=== PATIENT | male | born 1955 | race Two or more races ===

== ENCOUNTER 2025-05-15 09:37 | Outpatient (AMB) | payer MEDICARE, MEDICAID, SELFPAY ==
--- OUTSIDE RECORDS SUMMARY | 2025-05-10 18:00 | XMS_ITS | Encounter Summary ---
Author Organization [facility] Address [address] [place] [address] Care Team Providers Care Special Education Case Manager Name Role Phone Santino Curiel MD Primary Care Provider [phone] Reason for Visit * Reason Comments UTI 1 months Encounter Details Date Type Department Care Team (Late st Contact Info) Description 05/10/2025 6:00 PM EDT Office Visit Walk-In Clinic - [facility] [address], [place] [phone] Ezekiel Horner PA [address], [place] Acute cystitis without hematuria (Primary Dx); History of sepsis Social History Tobacco Use Types Packs/Day Years Used Date Smoking Tobacco: Never Smokeless Tobacco: Never Alcohol Use Standard Drinks/Week Comments No 0 (1 standard drink = 0.6 oz pur e alcohol) Housing Instability Answer Date Recorde d Are you worried that in the next 2 months you may not have stable housing? No 04/16/2025 Food Access & Nutrition Answer Date Rec orded Do you have access to a vari ety of food including fruits and vegetables? Yes 04/16/2025 Access to Healthcare Answer Date Record ed Within the last 3 months, jocelin jason many times did you visit the emergency department for your medical care? 1 04/16/2025 Financial Risk Answer Date Recorded How hard is it for you to pa y for the very basics like food, housing, medical care, and air conditioning / heating? Not very hard 04/16/2025 Transportation Answer Date Recorded Has the lack of transportati on kept you from meetings, work, or from getting things needed for daily living? No Has the lack of transportati on kept you from medical appointments or from getting medications? No 04/16/2025 Social Isolation Answer Date Recorded How often do you feel lonely or isolated from th ose around you? Never 04/16/2025 Food Risk Answer Date Recorded Within the past 12 months we worried whether our food would run out before we got money to buy more. Never true 04/16/2025 Within the past 12 months th e food we bought just didn't last and we didn't have money to get more. Never true 04/16/2025 Dependent Care Answer Date Recorded Do you need help finding or paying for care for your loved ones. For example, childrens club attendant or elderly care for an older adult? No 04/16/2025 Education Answer Date Recorded Do you think completing more education or training, like finishing a GED, going to college, or learning a trade, would be helpful for you? N/A 04/16/2025 Employment and Income Answer Date Recor ded During the last four weeks, have you been actively looking for work? No 04/16/2025 Living Situation Answer Date Recorded What is your living situation? 0 04/16/2025 Sex and Gender Information Value Date Recorded Sex Assigned at Not on file Legal Sex Male 1:45 AM EST Gender Identity Not on file Sexual Orientation Not on file documented as of this encounter Last Filed Vital Signs Vital Sign Reading Time Taken Comments Blood Pressure 147/67 05/10/2025 6:01 PM EDT Pulse 81 05/10/2025 6:01 PM EDT Temperature 36.9 C (98.4 F) 05/10/2025 6:01 PM EDT Respiratory Rate - - Oxygen Saturation 98% 05/10/2025 6:01 PM EDT Inhaled Oxygen Concentration - - Weight - - Height - - Body Mass Index - - documented in this encounter Ordered Prescriptions Prescription Sig Dispense Quantity Refills Last Filled Start Date End Date ciprofloxacin (CIPRO) 500 mg tablet Take 1 tablet (500 mg total) by mouth 2 (two) times a day for 10 days. 20 each 05/10/2025 05/20/2025 documented in this encounter Progress Notes * ERNIE Herrera - 05/10/2025 6:00 PM EDT CHIEF COMPLAINT: Chief Complaint Patient presents with UTI 1 months HPI: López Harvey is a 69 y.o. old male presenting with recurrent UTI. Patient was presenting to urgent care with fever of unknown origin, identified on urine dip to be a UTI. Macrobid therapy was unsuccessful and patient with septic, subsequently was treated at the ER with IV antibiotics, and discharged home on levofloxacin daily for 7 days. States that a a follow-up urine culture at the end of levofloxacin had no growth suggesting effective eradication of bacteriuria. For the last week however, his dysuria has been increasing along with cloudiness, odors, and right flank discomfort. Patient's and daughter both express concern that his UTI is coming back. He has had no fevers and no blood in the urine. ROS: Remainder of the 12 point review of symptoms unremarkable except for those idenitified in the HPI. 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 Family Status Relation Name Status Sister Alive Sister Alive Sister Alive Sister Alive Sister Alive Mother Father No partnership data on file MEDICATIONS DISCONTINUED/REORDERED: There are no discontinued medications. ACTIVE MEDICATIONS: No outpatient medications have been marked as taking for the 05/10/25 encounter (Office Visit) with ERNIE Herrera. ALLERGIES: No Known Allergies PHYSICAL EXAM: Vitals: 05/10/25 1801 BP: (!) 147/67 BP Location: Right arm Patient Position: Sitting Pulse: 81 Temp: 36.9 ??C (98.4 ??F) SpO2: 98% CONSTITUTIONAL: alert, calm, cooperative, in no acute distress HEAD: normocephalic, atraumatic EYES: extraocular movement intact (EOMI), sclera non-icteric EARS: no hearing deficit noted NECK/THYROID: neck range of motion grossly intact SKIN: warm and dry. No diaphoresis. HEART: S1, S2 normal. No murmurs, rubs, gallops. Regular rate and rhythm. LUNGS: Lung sounds clear to auscultation bilaterally, no wheezes, rales, or rhonchi. Respirations regular rate and depth without acute distress MSK: no clubbing, cyanosis, or edema. Positive right sided CVA tenderness to percussion. NEUROLOGIC: alert and oriented, no tremor, cranial nerves II-XII grossly intact PSYCH: mood/affect full range, speech clear, good eye contact, cooperative with exam LABS/IMAGING: Urine dip: Appearance cloudy yellow, gravity 1.015, pH 5, 2+ leukocyte esterase, positive nitrites,trace protein, negative glucose, negative ketones, negative urobilinogen, 250 RBC. Urinalysis pending. Urine culture and sensitivity pending. Lab Results Component Value Date EGFR 93 04/04/2025 IMPRESSION: 1. Acute cystitis without hematuria 2. History of sepsis PLAN: The patient's PMH, problem list and medications were reviewed in reference to the above diagnosis/diagnoses. Based on ROS, HPI, and PE, suggestive of recurrence of UTI. He does have right flank discomfort butis currently afebrile, nondiaphoretic, hemodynamically stable, normal respirations, no current signs for septic response or pyelonephritis. In the presence of returning leukocytes, nitrates, and red blood cells on urine dip, empiric treatment will be initiated urgently today given recent sepsis secondary to UTI. Initiate ciprofloxacin 2 times daily for 10 days. Urine culture and sensitivity are pending to confirm no antibiotic resistance to this antibiotic. The risks and benefits of this medication were discussed with the patient. The patient understands the potential side effects and basic interactions of this medication. The patient is asked to call me or my colleagues if they begin to experience any difficulties with this medication. Advised to follow up with PCP in 10 days if symptoms do not improve. Advised to follow up with UC or PCP immediately for new or worsening symptoms. Educated on red flags symptoms. Advised to go to the ER or call 911 for these symptoms. Patient understands the plan. Patient verbalizes agreement with the plan. Orders Placed This Encounter Procedures Culture urine Order Specific Question: Specimen Source: Answer: Urine, Clean Catch [76] Urinalysis microscopic only Urinalysis microscopic only POC Urine Non-Auto W/O Micro Order Specific Question: Release to patient Answer: Immediate [1] Other orders ciprofloxacin (CIPRO) 500 mg tablet; Take 1 tablet (500 mg total) by mouth 2 (two) times a day for 10 days. ERNIE Herrera on 05/10/2025 at 6:31 PM EDT Today's documentation was made using voice recognition software. This note may contain grammatical errors secondary to this software. Cosigned by Elie Lora MD at 05/14/2025 10:10 AM EDT documented in this encounter Plan of Treatment Upcoming Encounters Date Type Department Care Team (Late st Contact Info) Description 05/24/2025 1:00 PM EDT Medication Management Adult Medicine [address] [address] Yakelin Pack, PharmD [address] [place] [address] 06/17/2025 1:15 PM EDT Office Visit Internal Medicine - [address] [phone] Santino Curiel MD [address] [place] [phone] documented as of this encounter Procedures Procedure Name Priority Date/Time Associated Diagnosis Comments POC URINE NON-AUTO W/O MICRO Routine 05/10/2025 6:35 PM EDT Acute cystitis without hematuria URINALYSIS MICROSCOPIC ONLY Routine 05/10/2025 6:31 PM EDT Acute cystitis without hematuria URINALYSIS MICROSCOPIC ONLY Routine 05/10/2025 6:31 PM EDT Acute cystitis without hematuria CULTURE URINE Routine 05/10/2025 6:31 PM EDT Acute cystitis without hematuria documented in this encounter Results * (ABNORMAL) POC Urine Non-Auto W/O Micro (05/10/2025 6:35 PM EDT) Pathologist [facility] GLUCOSE POC Negative Negative, Trace mg/dL Leukocytes UA POC 2+(A) Negative mg/dL Nitrite UA POC Positive Urobilinogen UA POC 0.2 E.U./dL mg/dL Protein UA POC Positive Positive, Negative PH UA POC 5.0 BEVERLEY/HM UA POC 250(A) Negative Specific Holt UA POC 1.015 Ketones UA POC Negative Negative Bilirubin UA POC Negative Negative Urine Urine specimen obtained by clean catch procedure / Unknown 05/10/2025 6:35 PM EDT Ezekiel KLEIN POINT OF CARE TEST ENTER/E DIT ORDERABLES Final Result * (ABNORMAL) Urinalysis microscopic only (05/10/2025 6:31 PM EDT) [facility] RBC, Urine 51.0(H) 0 - 4 /HPF LAB URINALYSIS - AUTOMATED METHOD 05/10/2025 8:06 PM EDT [facility] WBC, Urine 166.5(H) 0 - 4 /HPF LAB URINALYSIS - AUTOMATED METHOD 05/10/2025 8:06 PM EDT [facility] Squamous Epithelial, Urine 2 0 - 60 /LPF LAB URINALYSIS - AUTOMATED METHOD 05/10/2025 8:06 PM EDT [facility] Bacteria, Urine Many(A) Negative /HPF LAB URINALYSIS - AUTOMATED METHOD 05/10/2025 8:06 PM EDT [facility] Hyaline Casts, Urine 1.6 0 - 3 /LPF LAB URINALYSIS - AUTOMATED METHOD 05/10/2025 8:06 PM EDT [facility] Urine Urine specimen obtained by clean catch procedure / Unknown Non-blood Collection / Unknown 05/10/2025 6:31 PM EDT 05/10/2025 6:31 PM EDT Ezekiel KLEIN LAB URINE ORDERABLES Final Result [facility] [address] [place] [address], * (ABNORMAL) Culture urine (05/10/2025 6:31 PM EDT) Culture, Urine >=100,000 CFU/mL Escherichia coli(A) GOPAL 05/12/2025 11:19 AM EDT [facility] Urine Urine specimen obtained by clean catch procedure / Unknown Non-blood Collection / Unknown 05/10/2025 6:31 PM EDT 05/10/2025 6:31 PM EDT Narrative Organism Antibiotic Method Susceptibility Escherichia coli Amoxicillin/Clavulanate GOPAL <=2 ug/ml: Susceptible Escherichia coli Ampicillin/Sulbactam GOPAL <=2 ug/ml: Susceptible Escherichia coli Piperacillin/Tazobactam GOPAL <=4 ug/ml: Susceptible Escherichia coli Cefazolin (Urine) GOPAL <=1 ug/ml: Susceptible Escherichia coli Cefoxitin GOPAL <=4 ug/ml: Susceptible Escherichia coli Ceftazidime GOPAL <=0.5 ug/ml: Susceptible Escherichia coli Ceftriaxone GOPAL <=0.25 ug/ml: Susceptible Escherichia coli Cefepime GOPAL <=0.12 ug/ml: Susceptible Escherichia coli Meropenem GOPAL <=0.25 ug/ml: Susceptible Escherichia coli Amikacin GOPAL 2 ug/ml: Susceptible Escherichia coli Gentamicin GOPAL <=1 ug/ml: Susceptible Escherichia coli Ciprofloxacin GOPAL <=0.06 ug/ml: Susceptible Escherichia coli Levofloxacin GOPAL <=0.12 ug/ml: Susceptible Escherichia coli Nitrofurantoin GOPAL <=16 ug/ml: Susceptible Escherichia coli Trimethoprim/Sulfamethoxazole GOPAL <=20 ug/ml: Susceptible Ezekiel KLEIN LAB MICROBIOLOGY - GENERAL ORDERABLES Final Result [facility] [address] [place] [address], documented in this encounter Visit Diagnoses Diagnosis Acute cystitis without hematuria- Primary History of sepsis Personal history of other infectious and parasitic disease documented in this encounter Care Teams Special Education Case Manager Relationship Specialty Start Date End Date Santino Curiel MD [address] [place] [id number] PCP - General Internal Medicine 10/04/24 documented as of this encounter
--- NOTE | 2025-05-15 09:47 | A.OFFVIS_ITS ---
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 Allergies No Known Allergies Allergy (Verified 05/13/25 11:24) Medication List - Last Reconciled 05/15/25 by Panda Mustafa MD aspirin 81 mg PO DAILY atorvastatin (Lipitor) 80 mg PO DAILY carvedilol 3.125 mg PO BID ezetimibe 10 mg PO DAILY glipizide 10 mg PO BID insulin aspart U-100 subcut insulin glargine (Lantus U-100 Insulin) 20 units subcut DAILY lisinopril 10 mg PO DAILY methenamine hippurate 1 g PO BID omeprazole 20 mg PO DAILY tamsulosin 0.4 mg PO BID HPI Comments Details: This is a 69-year-old man with a 20 year history of insulin-dependent diabetes, hypertension, hyperlipidemia, coronary artery disease status post right coronary stent 5 years ago, who also had lung cancer approximately 16 years ago treated with resection, radiation and chemotherapy. 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 As a result of this,he has fairly severe dysarthria and marked cerebellar ataxia of his limbs and is wheelchair-bound. He can occasionally take 2 or 3 steps with a walker with an assist. He is now here because of pains behind his knees on moving the knees in the last 2 months with sharp pains. He has some baseline aching in the area. It does not actually involve the muscles although the lower hamstrings may be involved. Mostly, he gets a momentary sharp pain when he moves his legs. He also has some pain in his neck and upper shoulders. Recently he has had a UTI and is currently on ciprofloxacin. [facility] Medical History (Updated 05/15/25 @ 10:11 by Panda Mustafa MD) Hypertension Diabetes mellitus HLD (hyperlipidemia) Myalgia Review of Systems ENT Reports disequilibrium Musc Reports abnormal gait and Reports arthralgias Neuro Reports Neuro-related abnormal movements, Reports abnormal gait, Reports lack of coordination, Reports tremor(s) and Reports disequilibrium Psych Reports depression Physical Exam Neuro Other: He is alert and oriented but has severe dysarthria with a slow staccato cerebellar speech. He has nystagmus on lateral gaze particularly to the right and some down beating nystagmus on left lateral gaze. His visual moseley are full in the other cranial nerves are normal with normal palatal movements. His muscle tone and strength are normal in all 4 extremities. He has marked cerebellar tremor of his upper and lower extremities the moment he holds them up and moves the elbows away from his trunk this start flopping all over. [id number] test can not be performed and he can not do [id number] testing. He has 2+ reflexes in the upper extremities and knees with absent ankle responses. Plantar responses are flexor. Gait could not be tested. He is confined to a wheelchair. Assessment & Plan Assessment & Plan (1) Paraneoplastic cerebellar ataxia: Code(s): D49.9 - Neoplasm of unspecified behavior of unspecified site; G32.81 - Cerebellar ataxia in diseases classified elsewhere Category: Medical (2) Arthralgia of both knees: Code(s): M25.561 - Pain in right knee; M25.562 - Pain in left knee Category: Medical (3) Diabetes mellitus: Code(s): E11.9 - Type 2 diabetes mellitus without complications Category: Medical (4) Myalgia: Code(s): M79.10 - Myalgia, unspecified site Category: Medical Plan Labs to check sed rate, CPK, aldolase, Lyme titers. Nerve conduction studies and EMG of the lower extremities. Two week trial of diclofenac 75 mg b.i.d. 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 Recently he has been found to have another nodule on his lungs and is awaiting appointment to with the specialist. Orders: Orders Erythrocyte Sedimentation Rate Today M25.561 - Pain in right knee, M25.562 - Pain in left knee, M79.10 - Myalgia, unspecified site NE nerve conduction velocity Today M79.10 - Myalgia, unspecified site Creatine Kinase Total Today M79.10 - Myalgia, unspecified site Aldolase Today M79.10 - Myalgia, unspecified site Lyme IgG/IgM w/reflex to WB Today M25.561 - Pain in right knee, M25.562 - Pain in left knee NE electromyogram (EMG) Today M79.10 - Myalgia, unspecified site Medications: New diclofenac sodium 75 mg PO BID 30 tabs 1RF arthralgia knee 15 days Coding Level of Care Code New Pt Level 5 (35525) Diagnoses Paraneoplastic cerebellar ataxia D49.9; G32.81 Arthralgia of both knees M25.561; M25.562 Diabetes mellitus E11.9 Myalgia M79.10
--- OUTSIDE RECORDS SUMMARY | 2025-05-15 11:30 | XMS_ITS | Encounter Summary ---
Author Organization [facility] Address [address] [place] [address] Phone Care Team Providers Care Air And Water Filler Name Role Phone Clark Baron MD Unavailable [phone] Santino Curiel MD Primary Care Provider + John Witt MD Unavailable [phone] Shayy Parks MD Unavailable Unavailable Santino Curiel MD Primary Care Provider + John Witt MD Unavailable [phone] Encounter Details Date Type Department Care Team (Late st Contact Info) Description 12/27/2017 Procedure Pass [facility] [address] [place] [address] Social History Tobacco Use Types Packs/Day Years Used Date Smoking Tobacco: Former Cigarettes 0.5 30 0 08/22/1977 - 08/22/2007 Smokeless Tobacco: Never Alcohol Use Standard Drinks/Week Comments No 0 (1 standard drink = 0.6 oz pur e alcohol) Sex and Gender Information Value Date Recorded Sex Assigned at Male 11/09/2024 11:13 AM EDT Legal Sex Male 5:18 PM EST Gender Identity Male 11/09/2024 11:13 AM EDT Sexual Orientation Straight 11/09/2024 11 :13 AM EDT 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 11/24/15 John Witt MD [address] [place] [phone] [email or web address] Thoracic Surgery 12/26/17 Shayy Parks MD Radiation Oncology 12/26/17 John Witt MD [address] [place] [phone] [email or web address] Referring Physician Thoracic Surgery 11/09/24 documented as of this encounter Additional Source Comments The information contained in this document represents components of the legal health record. It is not the complete legal health record.[facility]
--- OUTSIDE RECORDS SUMMARY | 2025-05-15 11:30 | XMS_ITS | Encounter Summary ---
Author Organization [facility] Address [address] [place] [phone] Phone Care Team Providers Care Looper Fixer Name Role Phone Clark Baron MD Unavailable [phone] Santino Curiel MD Primary Care Provider + John Witt MD Unavailable [phone] Shayy Parks MD Unavailable Unavailable Santino Curiel MD Primary Care Provider + John Witt MD Unavailable [phone] Encounter Details Date Type Department Care Team (Late st Contact Info) Description 02/16/2022 Procedure Pass [facility] [place] [place] [address] [facility] [place] [address] Social History Tobacco Use Types Packs/Day Years [...] on filedocumented in this encounter Care Teams Looper Fixer Relationship Specialty Start Date End Date Santino Curiel MD [address] [place] [phone] PCP - General Internal Medicine 11/22/16 11/08/24 Santino Curiel MD [address] [place] [address] PCP - General Internal Medicine 11/09/24 Clark Baron MD [address] [place] [phone] [email or web address] Medical Oncology 11/24/15 John Witt MD [address] [place] [phone] Thoracic Surgery 12/26/17 Shayy Parks MD Radiation Oncology 12/26/17 John Witt MD [address] [place] [phone] [email or web address] Referring Physician Thoracic Surgery 11/09/24 documented as of this encounter Additional Source Comments The information contained in this document represents components of the legal health record. It is not the complete legal health record.[facility]
--- OUTSIDE RECORDS SUMMARY | 2025-05-15 11:30 | XMS_ITS | Encounter Summary ---
Author Organization [facility] Address [address] [place] [id number] Phone Care Team Providers Care Milking Machine Operator Name Role Phone Clark Baron MD Unavailable [phone] John Witt MD Unavailable [phone] Shayy Parks MD Unavailable Unavailable Santino Curiel MD Primary Care Provider + John Witt MD Unavailable [phone] Encounter Details Date Type Department Care Team (Late st Contact Info) Description 01/09/2025 Procedure Pass [facility] [place] [address] [address] Social History Tobacco Use Types Packs/Day Years Used Date Smoking Tobacco: Former Cigarettes 0.5 30 0 08/22/1977 - 08/22/2007 Smokeless Tobacco: Never Alcohol Use Standard Drinks/Week Comments No 0 (1 standard drink = 0.6 oz pur e alcohol) Child or Family Care Answer Date Record ed Do you have problems with on e of the following making it difficult for you to work, study, or receive health care? No 01/09/2025 Education Answer Date Recorded Are you interested in more education? Not on germán e 12/19/2022 Are you concerned about learning? Not on file 12/19/2022 No 12/19/2022 No 12/19/2022 Food Answer Date Recorded Within the past 6 months we worried whether our food would run out before we got money to buy more. Never True 01/09/2025 Within the past 6 months the food we bought just didn't last and we didn't have enough money to get more. Never True Residential Stability Answer Date Recor ded What is your housing situation today? I have evelin tejada 01/09/2025 How many times have you moved in the past 12 mon ths? One time 01/09/2025 Paying for Meds Answer Date Recorded Do you have trouble paying for medicines? No 01/09/2025 Paying Utility Bills Answer Date Record ed Do you have trouble paying your heating or elect ricity bill? No 01/09/2025 Transportation Answer Date Recorded Has the lack of transportati on kept you from medical appointments or from getting medications? No 01/09/2025 Digital Access Answer Date Recorded No 01/16/2023 No 01/16/2023 Reliable internet access at home? Not on file 01/16/2023 Device with a working camera? Not on file Sex and Gender Information Value Date Recorded [...] on filedocumented in this encounter Care Teams Milking Machine Operator Relationship Specialty Start Date End Date Santino Curiel MD [address] [place] [phone] PCP - General Internal Medicine 11/09/24 Clark Baron MD [address] [place] [phone] [email or web address] 11/24/15 John Witt MD [address] [place] [phone] [email or web address] Thoracic Surgery 12/26/17 Shayy Parks MD Radiation Oncology 12/26/17 John Witt MD [address] [place], [place] [id number] [email or web address] Referring Physician Thoracic Surgery 11/09/24 documented as of this encounter Additional Source Comments The information contained in this document represents components of the legal health record. It is not the complete legal health record.[facility]
--- OUTSIDE RECORDS SUMMARY | 2025-05-15 11:30 | XMS_ITS | Encounter Summary ---
Author Organization [facility] Address [address] [place] [id number] Phone Care Team Providers Care Business Development Engineer Name Role Phone Clark Baron MD Unavailable [phone] Santino Curiel MD Primary Care Provider + John Witt MD Unavailable [phone] Shayy Parks MD Unavailable Unavailable Santino Curiel MD Primary Care Provider + John Witt MD Unavailable [phone] Encounter Details Date Type Department Care Team (Late st Contact Info) Description 01/05/2018 Procedure Pass [facility] [address] [place] [address] Social History Tobacco Use Types Packs/Day Years [...] on filedocumented in this encounter Care Teams Business Development Engineer Relationship Specialty Start Date End Date Santino Curiel MD [address] [place] [address] PCP - General Internal Medicine 11/22/16 11/08/24 Santino Curiel MD [address] [place] [address] PCP - General Internal Medicine 11/09/24 Clark Baron MD [address] [place] [phone] [email or web address] 11/24/15 John Witt MD [address] [place] [phone] [email or web address] Thoracic Surgery 12/26/17 Shayy Parks MD Radiation Oncology 12/26/17 John Witt MD [address] [place] [phone] [email or web address] Referring Physician Thoracic Surgery 11/09/24 documented as of this encounter Additional Source Comments The information contained in this document represents components of the legal health record. It is not the complete legal health record.[facility]
--- OUTSIDE RECORDS SUMMARY | 2025-05-15 11:30 | XMS_ITS | Clinical Summary ---
Author Organization [facility] Address [address] [place] [address] Phone Care Team Providers Care Tank Maker Wood Name Role Phone Santino Curiel MD Primary Care Provider [phone] Allergies No known active allergies Medications glucose blood (Blood Glucose Test) test strip ONE TOUCH BASIC STRIPS 4 times daily. One touch ultra test strips Active atorvastatin (LIPITOR) 80 mg tablet Take 1 tablet (80 mg total) by mouth at bedtime. 90 each 1 12/11/19 25 2024 Active lisinopriL (PRINIVIL,ZESTR IL) 10 mg tablet Take 1 tablet (10 mg total) by mouth 1 (one) time each day. 90 tablet 12/11/19 25 Active diclofenac (VOLTAREN) 1 % topical gel APPLY 2 G TOPICALLY TWICE A DAY 100 g 1 01/26/20 25 Active OneTouch Ultra Test test stripIndication s:Type 2 diabetes mellitus with other diabetic neurological complication (CMS/HCC V24, CMS/HCC V28),Acute cough USE ONE TEST STRIP TO CHECK BLOOD SUGAR THREE TIMES A DAY 150 strip 5 02/08/20 25 Active glipiZIDE (GLUCOTROL XL) 10 mg 24 hr tablet Take 1 tablet (10 mg total) by mouth 2 (two) times a day. 180 tablet 1 02/27/20 25 Active omeprazole (PriLOSEC) [address] capsule Take 1 capsule (20 mg total) by mouth 1 (one) time each day. 90 capsule 1 02/27/20 25 Active tamsulosin (FLOMAX) 0.4 mg 24 hr capsule Take 1 capsule (0.4 mg total) by mouth 1 (one) time each day with breakfast. Capsules should be taken 30 minutes following the same meal each day. Active carvediloL (Coreg) 12.5 mg tablet Take 1 tablet (12.5 mg total) by mouth 2 (two) times a day with meals. 60 each 2 04/19/20 25 Active ezetimibe (ZETIA) 10 mg tablet Take 1 tablet (10 mg total) by mouth 1 (one) time each day. Active insulin glargine-yfgn (Semglee,insuli n glarg-yfgn,Pen) 100 unit/mL (3 mL) injection Inject 35 Units under the skin at bedtime. 45 mL 1 04/19/20 25 Active pen needle, diabetic 32 gauge x 32 needle USE WITH INSULIN PEN 4 x a day 100 each 1 05/03/20 25 Active methenamine hippurate (HIPREX) 1 gram tablet Take 1 tablet (1 g total) by mouth 2 (two) times a day with meals. Active lidocaine (LIDODERM) 5 % patch APPLY 1 PATCH DAILY APPLY TO PAINFUL AREA FOR 12 HOURS PER DAY, REMOVE FOR 12 HOURS 30 patch 2 05/06/20 25 Active aspirin 81 mg EC tablet TAKE 1 TABLET BY MOUTH 1 TIME EACH DAY. 90 tablet 1 05/06/20 25 Active insulin aspart (NovoLOG Flexpen U-100 Insulin) 100 unit/mL (3 mL) injection pen Inject 10 Units under the skin 3 (three) times a day with meals. Please dispense brand or generic. Whichever is covered. Increase in dose 15 mL 1 05/08/20 25 Active tiZANidine (ZANAFLEX) 4 mg tablet Take 1 tablet (4 mg total) by mouth at bedtime. 30 tablet 05/09/20 25 Active ciprofloxacin (CIPRO) 500 mg tablet Take 1 tablet (500 mg total) by mouth 2 (two) times a day for 10 days. 20 each 05/10/20 25 2024 Active doxycycline (ADOXA) 100 mg tablet TAKE 1 TABLET BY MOUTH TWICE A DAY FOR 10 DAYS 04/30/20 24 2024 Discontinued(T herapy completed) aspirin 81 mg EC tablet Take 1 tablet (81 mg total) by mouth 1 (one) time each day. 90 tablet 11/07/19 25 2024 Discontinued carvediloL (COREG) 3.125 mg tablet Take 3.125 mg by mouth 2 times daily (with meals). 180 tablet 12/11/19 25 2024 Discontinued(T herapy completed) lidocaine (LIDODERM) 5 % patch Apply 1 patch topically 1 (one) time each day. Apply to painful area 12 hours per day, remove for 12 hours. 30 each 2 01/16/202024 Discontinued metFORMIN (GLUCOPHAGE) 1,000 mg tablet Take 1 tablet (1,000 mg total) by mouth 2 (two) times a day with meals. 180 tablet 1 02/27/202024 Discontinued(T herapy completed) pen needle, diabetic 32 gauge x 5/32 needle USE WITH INSULIN PEN ONCE DAILY. 100 each 1 02/27/202024 Discontinued(R eorder) insulin glargine-yfgn (Semglee,insuli n glarg-yfgn,Pen) 100 unit/mL (3 mL) injection Inject 31 Units under the skin at bedtime. 45 mL 1 02/27/202024 Discontinued(R eorder) acetaminophen (TYLENOL) 500 mg tablet Take 1 tablet (500 mg total) by mouth every 4 (four) hours if needed for fever - temperature GREATER than 38 C (100.4 F) for up to 10 days. 30 tablet 04/05/202024 tiZANidine (ZANAFLEX) 4 mg tablet Take 1 tablet (4 mg total) by mouth at bedtime. 30 tablet 04/11/202024 Discontinued(R eorder) dulaglutide (TRULICITY) 0.75 mg/0.5 mL pen injector injectionIndica tions:Type 2 diabetes mellitus with neurological manifestations, controlled (CMS/HCC V24, CMS/HCC V28) Inject 0.5 mL (0.75 mg total) under the skin every 7 (seven) days. 2 mL 1 04/19/202024 Discontinued(T herapy completed) insulin aspart (NovoLOG Flexpen U-100 Insulin) 100 unit/mL (3 mL) injection pen Inject 5 Units under the skin 3 (three) times a day with meals for 1 day. Please dispense brand or generic. 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 Overview (07/11/2024): [facility] [place] Type 2 diabetes mellitus wit h neurological manifestations, controlled ([facility] V24, [facility] V28) 07/09/2015 Encounters Date Type Department Care Team Description 05/10/2025 6:00 PM EDT Office Visit Walk-In Clinic - [address] [phone] Ezekiel Horner PA Acute cystitis without hematuria (Primary Dx); History of sepsis 05/10/2025 Telephone Internal Medicine - [address] [phone] Santino Curiel MD 05/08/2025 Telephone Internal Medicine - [address] [phone] Santino Curiel MD 04/16/2025 Telephone Internal Medicine - [address] [phone] Kellen Thompson RN 04/11/2025 10:00 AM EDT [facility] [phone] Santino Curiel MD Sepsis, due to unspecified organism, unspecified whether acute organ dysfunction present ([facility] V24, [facility] V28) (Primary Dx); At risk for sepsis due to urinary tract infection; Myalgia; Uncontrolled diabetes mellitus of other type with hypoglycemia, unspecified hypoglycemia coma status ([facility] V24, [facility] V28) 04/10/2025 Telephone Internal Medicine [address] [phone] Kellen Thompson, AMARI 04/09/2025 Telephone Internal Medicine [address] [phone] Santino Curiel MD 04/09/2025 [facility] [address] [phone] Kellen Thompson RN 04/09/2025 [facility] [address] [phone] Santino Curiel MD 04/08/2025 Telephone Internal Medicine [address] [phone] Santino Curiel MD 04/05/2025 3:15 PM EDT Office Visit Walk-In [address] [phone] Ezekiel Horner PA Acute cystitis without hematuria (Primary Dx); Fever of unknown origin (FUO) 04/05/2025 Telephone Walk-In [facility] [address] [place] [address] Ezekiel Horner PA 04/05/2025 Telephone Internal Medicine [address] [phone] Santino Curiel MD 04/03/2025 Telephone Internal Medicine [address] [phone] Santino Curiel MD 02/13/2025 Telephone Adult Medicine [address] [phone] Yakelin Pack, PharmPepito from Last 3 Months Immunizations Name Administration Dates Next Due Pfizer SARS-CoV-2 COVID-19, mRNA, LNP-S, preservative free 04/05/2022,06/18/2021,11/22/2020 Surgical History Surgery Date Site/Laterality Comments OTHER SURGICAL HISTORY PROCEDURE: LUNG BIOPSY THROUGH CHEST WALL Medical History Medical History Date Comments CAD (coronary artery disease) 12/10/2019 DX :CAD (coronary artery disease); COMMENT: 12/09 STEMI, 90% prox RCA stenosis with NIMA stent placed Cataract 07/07/2021 DX:Cataract Family History Relation Name Status Comments Father Mother Sister 1 Alive Sister 2 Alive Sister 3 Alive Sister 4 Alive Sister 5 Alive Social History Tobacco Use Types Packs/Day Years Used Date Smoking Tobacco: Never Smokeless Tobacco: Never Tobacco Cessation:Counseling Given: Not Answered Alcohol Use Standard Drinks/Week Comments No 0 [...] Record ed Within the last 3 months, ho w many times did you visit the emergency [...] care for your loved ones. For example, child care associate or elderly care for an older adult? [...] on file Sexual Orientation Not on file Obstetrics History Last Filed Vital Signs Vital Sign Reading Time Taken Comments Blood Pressure 147/67 05/10/2025 6:01 PM EDT Pulse 81 05/10/2025 6:01 PM EDT Temperature 36.9 C (98.4 F) 05/10/2025 6:01 PM EDT Respiratory Rate - - Oxygen Saturation 98% 05/10/2025 6:01 PM EDT Inhaled Oxygen Concentration - - Weight 68 kg (150 lb) 12/10/2024 2:31 PM EDT Height 170.2 cm (5' 7 ) 12/10/2024 2:31 PM EDT Body Mass Index 23.49 12/10/2024 2:31 PM EDT Plan of Treatment Upcoming Encounters Date Type Department Care Team (Late st Contact Info) Description 05/24/2025 1:00 PM EDT Medication Management Adult Medicine - [facility] [address] [place] [address] Yakelin Pack, PharmD [address] [place], [place] [phone] 06/17/2025 1:15 PM EDT Office Visit Internal Medicine - [facility] [address] [place] [address] Santino Curiel MD [address] [place] [phone] Health Maintenance Due Date Last Done Comments Diabetes: Annual Foot Exam 1964 Diabetes: Annual Retina Eye Exam 1964 DTaP,Tdap,and Td Vaccines (1 - Tdap) 1973 Pneumococcal Vaccine: 50+ Years (1 of 2 - PCV) 1973 Zoster Vaccines (1 of 2) 1973 RSV Immunization Adult Patients (1 - Risk 60-74 years 1-dose series) 2014 Colorectal Cancer Screening: Colonoscopy 07/31/2022 Hepatitis C Screening 07/31/2022 Diabetes: Annual Urine Albumin-Creatinine Ratio (uACR) 04/01/2024 04/01/2023 Depression Screening 08/22/2024 04/02/2024 Falls Risk Assessment 04/02/2025 04/02/2024 Medicare Annual Wellness Visit 04/02/2025 04/02/2024 COVID-19 Vaccine ( season) 2025 04/05/2022, 06/18/2021, 11/22/2020 Influenza Vaccine (#1) 2025 Diabetes: Blood Sugar Control Test (HGBA1C) 06/11/2025 12/10/2024, 04/02/2024, 04/02/2024 Diabetes: Annual GFR (Glomerular Filtration Rate) 04/04/2026 04/04/2025, 03/06/2025, 01/07/2025, Additional history exists Hypertension/CHF/CAD Annual BMP Blood Test 04/04/2026 04/04/2025, 03/06/2025, 01/07/2025, Additional history exists Social Influencers of Health Screening 04/16/2026 04/16/2025 Cholesterol Screening (Lipid Panel) 12/10/2029 12/10/2024, 04/02/2024, 04/02/2024 HIB Vaccines Aged Out No longer eligi ble based on patient's age to complete this topic HPV Vaccines Aged Out No longer eligi ble based on patient's age to complete this topic Hepatitis A Vaccines Aged Out No long er eligible based on patient's age to complete this topic Hepatitis B Vaccines Aged Out No long er eligible based on patient's age to complete this topic IPV Vaccines Aged Out No longer eligi ble based on patient's age to complete this topic MMR Vaccines Aged Out No longer eligi ble based on patient's age to complete this topic Meningococcal ACWY Vaccine Aged Out N o longer eligible based on patient's age to complete this topic Meningococcal B Vaccine Aged Out No l onger eligible based on patient's age to complete this topic RSV Immunization Patients Under 20 months Aged Out No longer eligible based on patient's age to complete this topic Varicella Vaccines Aged Out No longer eligible based on patient's age to complete this topic Procedures Procedure Name Priority Date/Time Associated Diagnosis Comments POC URINE NON-AUTO W/O MICRO Routine 05/10/2025 6:35 PM EDT Acute cystitis without hematuria URINALYSIS MICROSCOPIC ONLY Routine 05/10/2025 6:31 PM EDT Acute cystitis without hematuria URINALYSIS MICROSCOPIC ONLY Routine 05/10/2025 6:31 PM EDT Acute cystitis without hematuria CULTURE URINE Routine 05/10/2025 6:31 PM EDT Acute cystitis without hematuria POC URINE NON-AUTO W/O MICRO Routine 04/05/2025 4:08 PM EDT Fever of unknown origin (FUO) Acute cystitis without hematuria POC INFLUENZA A/B Routine 04/05/2025 4:0 7 PM EDT Fever of unknown origin (FUO) POC RAPID [id number], MOLECULAR Routine 04/05/2025 4:06 PM EDT Fever of unknown origin (FUO) URINALYSIS MICROSCOPIC ONLY Routine 04/05/2025 3:53 PM EDT Fever of unknown origin (FUO) Acute cystitis without hematuria URINALYSIS MICROSCOPIC ONLY Routine 04/05/2025 3:53 PM EDT Fever of unknown origin (FUO) Acute cystitis without hematuria CULTURE URINE Routine 04/05/2025 3:53 PM EDT Fever of unknown origin (FUO) Acute cystitis without hematuria BASIC METABOLIC PANEL Routine 04/04/2025 10:25 AM EDT Myalgia CREATINE KINASE Routine 04/04/2025 10:25 AM EDT Myalgia HEMOGLOBIN A1C Routine 12/10/2024 3:19 PM EDT Type 2 diabetes mellitus with neurological manifestations, controlled (CMS/[facility] V24, CMS/[facility] V28) LIPID PANEL WITH REFLEX TO DIRECT LDL Routine 12/10/2024 3:19 PM EDT Type 2 diabetes mellitus with neurological manifestations, controlled (CMS/[facility] V24, CMS/[facility] V28) HM DEPRESSION SCREENING Routine 04/02/2024 FALLS RISK ASSESSMENT Routine 04/02/2024 HM URINE ALBUMIN CREATININE RATIO Routine 04/01/2023 from Last 3 Months or Most Recently Relevant to Health Maintenance Results * (ABNORMAL) POC Urine Non-Auto W/O Micro (05/10/2025 6:35 PM EDT) Only the most recent of2 resultswithin the time period is included. GLUCOSE POC Negative Negative, Trace mg/dL Leukocytes UA POC 2+(A) Negative mg/dL Nitrite UA POC Positive Urobilinogen UA POC 0.2 E.U./dL mg/dL Protein UA POC Positive Positive, Negative PH UA POC 5.0 [place]/HM UA POC 250(A) Negative Specific [place] UA POC 1.015 Ketones UA POC Negative Negative Bilirubin UA POC Negative Negative Urine Urine specimen obtained by clean catch procedure / Unknown 05/10/2025 6:35 PM EDT Ezekiel KLEIN POINT OF CARE TEST ENTER/E DIT ORDERABLES Final Result * (ABNORMAL) Urinalysis microscopic only (05/10/2025 6:31 PM EDT) Only the most recent of2 resultswithin the time period is included. RBC, Urine 51.0(H) 0 - 4 /HPF LAB URINALYSIS - AUTOMATED METHOD 05/10/2025 8:06 PM EDT [facility] WBC, Urine 166.5(H) 0 - 4 /HPF LAB URINALYSIS - AUTOMATED METHOD 05/10/2025 8:06 PM EDT [facility] Squamous Epithelial, Urine 2 0 - 60 /LPF LAB URINALYSIS - AUTOMATED METHOD 05/10/2025 8:06 PM EDT [facility] Bacteria, Urine Many(A) Negative /HPF LAB URINALYSIS - AUTOMATED METHOD 05/10/2025 8:06 PM EDT [facility] Hyaline Casts, Urine 1.6 0 - 3 /LPF LAB URINALYSIS - AUTOMATED METHOD 05/10/2025 8:06 PM EDT [facility] Urine Urine specimen obtained by clean catch procedure / Unknown Non-blood Collection / Unknown 05/10/2025 6:31 PM EDT 05/10/2025 6:31 PM EDT Ezekiel KLEIN LAB URINE ORDERABLES Final Result [facility] [address] [place] [address], * (ABNORMAL) Culture urine (05/10/2025 6:31 PM EDT) Only the most recent of2 resultswithin the time period is included. Culture, Urine >=100,000 CFU/mL Escherichia coli(A) GOPAL 05/12/2025 11:19 AM EDT [facility] Urine Urine specimen obtained by clean [...] LAB MICROBIOLOGY - GENERAL ORDERABLES Final Result [facility] [address] [place] [address], * POC Influenza A/B manually resulted (04/05/2025 4:07 PM EDT) Pathologist [facility] Rapid Influenza A AGN POC Negative Negative Rapid Influenza B AGN POC Negative Negative Swab 04/05/2025 4:07 PM EDT Ezekiel KLEIN POINT OF CARE TEST ENTER/E DIT ORDERABLES Final Result * Poc Rapid [id number], MOLECULAR (04/05/2025 4:06 PM EDT) COVID-19/SARS- COV-2 Rapid POC Negative Negative Swab Nasopharyngeal structure / Unknown 04/05/2025 4:06 PM EDT Ezekiel KLEIN POINT OF CARE TEST ENTER/E DIT ORDERABLES Final Result * Creatine kinase (04/04/2025 10:25 AM EDT) [facility] Total CK 134 22 - 269 unit/L LAB CHEMISTRY METHOD 04/04/2025 3:28 PM EDT [facility] Blood Venous blood specimen / Unknown Venipuncture / Unknown 04/04/2025 10:25 AM EDT 04/04/2025 10:25 AM EDT Santino Curiel MD LAB BLOOD ORDERABLES Final Res ult [facility] [address] [place] [address], [place] [phone] * (ABNORMAL) Basic metabolic panel (04/04/2025 10:25 AM EDT) [facility] Sodium 140 133 - 145 mmol/L LAB CHEMISTRY METHOD 04/04/2025 3:28 PM [facility] Potassium 4.4 3.5 - 5.5 mmol/L LAB CHEMISTRY METHOD 04/04/2025 3:28 PM [facility] Chloride 106 96 - 110 mmol/L LAB CHEMISTRY METHOD 04/04/2025 3:28 PM [facility] CO2 31 21 - 32 mmol/L LAB CHEMISTRY METHOD 04/04/2025 3:28 PM T [facility] Anion Gap 3 3 - 11 LAB CHEMISTRY METHOD 04/04/2025 3:28 PM [facility] Glucose 116(H) 70 - 100 mg/dL LAB CHEMISTRY METHOD 04/04/2025 3:28 PM [facility] BUN 22 5 - 25 mg/dL LAB CHEMISTRY METHOD 04/04/2025 3:28 PM [facility] Creatinine 0.87 0.70 - 1.30 mg/dL LAB CHEMISTRY METHOD 04/04/2025 3:28 PM EDT [facility] eGFR 93 >=60 mL/min/1. 73m2 LAB CHEMISTRY METHOD 04/04/2025 3:28 PM EDT [facility] Comment:Calculation based on the Chronic Kidney Disease Epidemiology Collaboration (CKD-EPI) equation refit without adjustment for race. BUN/Creatinine Ratio 25.3 LAB CHEMISTRY METHOD 04/04/2025 3:28 PM EDT [facility] Calcium 9.5 8.5 - 10.5 mg/dL LAB CHEMISTRY METHOD 04/04/2025 3:28 PM EDT [facility] Blood Venous blood specimen / Unknown Venipuncture / Unknown 04/04/2025 10:25 AM EDT 04/04/2025 10:25 AM EDT us Santino Curiel MD LAB BLOOD ORDERABLES Final Res ult [facility] [address] [place] [address], [place] [phone] * Lipid panel with reflex to direct LDL (12/10/2024 3:19 PM EDT) Cholesterol 168 0 - 200 mg/dL LAB CHEMISTRY METHOD 12/10/2024 8:05 PM [facility] Triglycerides 115 0 - 150 mg/dL LAB CHEMISTRY METHOD 12/10/2024 8:05 PM EDT [facility] HDL 54 >=40 mg/dL LAB CHEMISTRY METHOD 12/10/2024 [facility] LDL Calculated 91 0 - 100 mg/dL LAB CHEMISTRY METHOD 12/10/2024 8:05 PM [facility] VLDL Cholesterol Adam 23 mg/dL LAB CHEMISTRY METHOD 12/10/2024 8:05 PM EDT [facility] Non HDL Chol. (LDL+VLDL) 114 <145 mg/dL LAB CHEMISTRY METHOD 12/10/2024 8:05 PM EDT [facility] Chol/HDL Ratio 3.1 0.0 - 4.4 LAB CHEMISTRY METHOD 12/10/2024 8:05 PM EDT [facility] Blood Venous blood specimen / Unknown Venipuncture / Unknown 12/10/2024 3:19 PM EDT 12/10/2024 3:19 PM EDT us Santino Curiel MD LAB BLOOD ORDERABLES Final Res ult Performing Organization Address [facility]/ZIP Co de Phone Number [facility] [address] [place] [address], [place] [phone] * (ABNORMAL) Hemoglobin A1c (12/10/2024 3:19 PM EDT) Hemoglobin A1C 8.0(H) <6.5 % LAB CHEMISTRY METHOD 12/10/2024 10:01 PM EDT [facility] Mean Bld Glu Estim. 183 mg/dL LAB CHEMISTRY METHOD 12/10/2024 10:01 PM EDT [facility] Blood Venous blood specimen / Unknown Venipuncture / Unknown 12/10/2024 3:19 PM EDT 12/10/2024 3:19 PM EDT us Santino Curiel MD LAB BLOOD ORDERABLES Final Res ult [facility] [address] [place] [address], [place] [phone] * Falls Risk Assessment (04/02/2024) Falls Risk Assessment Abstracted Historical Provider HEALTH MAINTENANCE Final Result * Depression Screening (04/02/2024) HM Depression Screening Abstracted Historical Provider HEALTH MAINTENANCE Final Result * Urine Albumin Creatinine Ratio (04/01/2023) Urine Albumin Creatinine Ratio Abstracted Historical Provider HEALTH MAINTENANCE Final Result from Last 3 Months or Most Recently Relevant to Health Maintenance Insurance MEDICARE [place]ICAID - [place] Care Teams Tank Maker Wood Relationship Specialty Start Date End Date Santino Curiel MD [address] [place] [phone] PCP - General Internal Medicine 10/04/24
--- OUTSIDE RECORDS SUMMARY | 2025-05-15 11:30 | XMS_ITS | Encounter Summary ---
Author Organization [facility] Address [address] [place] [phone] Phone Care Team Providers Care Dispensary Clerk Name Role Phone Clark Baron MD Unavailable [phone] John Witt MD Unavailable [phone] Shayy Parks MD Unavailable Unavailable Santino Curiel MD Primary Care Provider + John Witt MD Unavailable [phone] Encounter Details Date Type Department Care Team (Late st Contact Info) Description 01/09/2025 Procedure Pass [facility] [place] [facility] [place] [place] [address] [address] Social History Tobacco Use Types [...] on filedocumented in this encounter Care Teams Dispensary Clerk Relationship Specialty Start Date End Date Santino Curiel MD [address] [place] [phone] PCP - General Internal Medicine 11/09/24 Clark Baron MD [address] [place] [phone] [email or web address] 11/24/15 John Witt MD [address] [place] [phone] [email or web address] Thoracic Surgery 12/26/17 Shayy Parks MD Radiation Oncology 12/26/17 John Witt MD [address] [place], [place] [id number] [email or web address] Referring Physician Thoracic Surgery 11/09/24 documented as of this encounter Additional Source Comments The information contained in this document represents components of the legal health record. It is not the complete legal health record.[facility]
--- OUTSIDE RECORDS SUMMARY | 2025-05-15 11:30 | XMS_ITS | Encounter Summary ---
Author Organization [facility] Address [address] [place] [phone] Phone Care Team Providers Care [facility] Office Supervisor Name Role Phone Clark Baron MD Unavailable [phone] John Witt MD Unavailable [phone] Shayy Parks MD Unavailable Unavailable Santino Curiel MD Primary Care Provider + John Witt MD Unavailable [phone] Encounter Details Date Type Department Care Team (Late st Contact Info) Description 01/09/2025 Procedure Pass [facility] [place] [facility] [place] [address] [address] Social History Tobacco Use Types [...] on filedocumented in this encounter Care Teams [facility] Office Supervisor Relationship Specialty Start Date End Date Santino Curiel MD [address] [place] [phone] PCP - General Internal Medicine 11/09/24 Clark Baron MD [address] [place] [phone] [email or web address] 11/24/15 John Witt MD [address] [place] [phone] [email or web address] Thoracic Surgery 12/26/17 Shayy Parks MD Radiation Oncology 12/26/17 John Witt MD [address] [place], [place] [phone] [email or web address] Referring Physician Thoracic Surgery 11/09/24 documented as of this encounter Additional Source Comments The information contained in this document represents components of the legal health record. It is not the complete legal health record.[facility]
--- OUTSIDE RECORDS SUMMARY | 2025-05-15 11:30 | XMS_ITS | Encounter Summary ---
Author Organization [facility] Address [address] [place] [address] Care Team Providers Care Legal Service Specialist Name Role Phone Santino Curiel MD Primary Care Provider [phone] Reason for Visit * Reason Onset Date Comments Blood Sugar Problem 04/09/2025 See previous encounter Encounter Details Date Type Department Care Team (Late st Contact Info) Description 04/09/[facility]25 [facility] [address] [place] [phone] Santino Curiel MD [address] [place] [phone] Social History Tobacco Use Types Packs/Day Years [...] care for your loved ones. For example, infant childcare provider or elderly care for an older adult? [...] on file documented as of this encounter Progress Notes * Kellen Thompson RN - 04/09/2025 1:42 PM EDT Spoke to the patients daughter again she is asking for PCP to order insulin . Advised again to takeJosef to the ER. She stated she just was discharged. Explained if his sugar is 500 he need to go [facility] ER. RAMON * Parmjit Ramos - 04/09/2025 1:30 PM EDT See previous encounter Pt's dtr Chiquis is calling back. Pls call her @ [phone] documented in this encounter Plan of Treatment Upcoming Encounters Date Type Department Care Team (Late st Contact Info) Description 05/24/2025 1:00 PM EDT Medication Management Adult Medicine - [place] [address] [place] [address] Yakelin Pack, PharmD [address] [place] [address] 06/17/2025 1:15 PM EDT Office Visit Internal Medicine - [address] [phone] Santino Curiel MD [address] [place] [address] documented as of this encounter Visit Diagnoses Not on filedocumented in this encounter Care Teams Legal Service Specialist Relationship Specialty Start Date End Date Santino Curiel MD [address] [place] [phone] PCP - General Internal Medicine 10/04/24 documented as of this encounter
--- OUTSIDE RECORDS SUMMARY | 2025-05-15 11:31 | XMS_ITS | Encounter Summary ---
Author Organization [facility] Address [address] [place] [address] Phone Care Team Providers Care Drop Wire Hanger Name Role Phone Clark Baron MD Unavailable [phone] Santino Curiel MD Primary Care Provider + John Witt MD Unavailable [phone] Shayy Parks MD Unavailable Unavailable Santino Curiel MD Primary Care Provider + John Witt MD Unavailable Encounter Details Date Type Department Care Team (Late st Contact Info) Description 01/11/2018 Procedure Pass Josey Lank Imaging Department, [facility] [place], [place] [address] [facility], Floor [address] [place] [address] Social History Tobacco Use Types Packs/Day Years [...] on filedocumented in this encounter Care Teams Drop Wire Hanger Relationship Specialty Start Date End Date Santino Curiel MD [address] [place] [phone] PCP - General Internal Medicine 11/22/16 11/08/24 Santino Curiel MD [address] [place] [phone] PCP - General Internal Medicine 11/09/24 Clark Baron MD [address] [place] [phone] [email or web address] 11/24/15 John Witt MD [address] [place] [address] Thoracic Surgery 12/26/17 Shayy Parks MD Radiation Oncology 12/26/17 John Witt MD [address] [place] [phone] [email or web address] Referring Physician Thoracic Surgery 11/09/24 documented as of this encounter Additional Source Comments The information contained in this document represents components of the legal health record. It is not the complete legal health record.[facility]
--- OUTSIDE RECORDS SUMMARY | 2025-05-15 11:31 | XMS_ITS ---
Author Organization [facility] Address [address] [place] [phone] Phone Care Team Providers Care Agronomy Teacher Name Role Phone Santino Curiel MD Primary Care Provider [phone] Chronic Care Management Status:Ongoing (Active) Start date:04/09/2025 Enrollment date:04/16/2025 Enrollment reason:Referred by Care Team Case Team Name Relationship Phone Sherine Puente RN Care Manager(Responsible Staff) Continued Care and Services Coordination
--- OUTSIDE RECORDS SUMMARY | 2025-05-15 11:31 | XMS_ITS | Encounter Summary ---
Author Organization [facility] Address [address] [place] [phone] Phone Care Team Providers Care Diamond Picker Name Role Phone Clark Baron MD Unavailable [phone] Santino Curiel MD Primary Care Provider + Jonh Witt MD Unavailable [phone] Shayy Parks MD Unavailable Unavailable Santino Curiel MD Primary Care Provider + John Witt MD Unavailable [phone] Encounter Details Date Type Department Care Team (Late st Contact Info) Description 11/22/2016 Procedure Pass Josey Lank Imaging Department, [facility] [place], [place] [address] [facility], Floor [address] [place] [address] Social History Tobacco Use Types Packs/Day Years Used Date Smoking Tobacco: Former Cigarettes Smokeless Tobacco: Never Sex and Gender Information Value Date Recorded Sex Assigned at Male 11/09/2024 11:13 AM EDT Legal Sex Male 5:18 PM EST Gender Identity Male 11/09/2024 11:13 AM EDT Sexual Orientation Straight 11/09/2024 11 :13 AM EDT documented as of this encounter Plan of Treatment Not on file documented as of this encounter Visit Diagnoses Not on filedocumented in this encounter Care Teams Diamond Picker Relationship Specialty Start Date End Date Santino Curiel MD [address] [place] [phone] PCP - General Internal Medicine 11/22/16 11/08/24 Santino Curiel MD [address] [place] [address] PCP - General Internal Medicine 11/09/24 Clark Baron MD [address] [place] [phone] [email or web address] 11/24/15 John Witt MD [address] [place] [address] Thoracic Surgery 12/26/17 Shayy Parks MD Radiation Oncology 12/26/17 John Witt MD [address] [place] [address] Referring Physician Thoracic Surgery 11/09/24 documented as of this encounter Additional Source Comments The information contained in this document represents components of the legal health record. It is not the complete legal health record.[facility]
--- OUTSIDE RECORDS SUMMARY | 2025-05-15 11:31 | XMS_ITS | Encounter Summary ---
Author Organization [facility] Address [address] [place] [address] Care Team Providers Care Trauma Manager Name Role Phone Santino Curiel MD Primary Care Provider [phone] Reason for Visit * Reason Onset Date Comments Bladder Problem 05/10/2025 Encounter Details Date Type Department Care Team (Late st Contact Info) Description 05/10/2025 [facility] [address] [place] [address] Santino Curiel MD [address] [place] [phone] Social History Tobacco Use Types Packs/Day Years [...] for your loved ones. For example, child caregiver or elderly care for an older adult? [...] as of this encounter Progress Notes * Michelle Garcia RN - 05/10/2025 3:33 PM EDT spoke to daughter Chiquis (vr)- reports of 69 yr old pt with recurring urin. s/x x few days-freqcy with burning when voiding. denies any fever/chills/lower abdl or back discomf. appt made-will convince pt as he adamantly refuses. * oJanne Chowdary - 05/10/2025 2:59 PM EDT Patient call requires triage: Symptoms patient is presenting: pt's daughter states they have some concerns about pt's bladder. Hehad a bladder infection recently it gave him a fever. Wants a recheck they have some concerns. Requesting to be seen if possible. How long has patient had these symptoms?: For ALL patients calling to schedule any appointment (routine, sick visit, follow up, consult, etc.) in the outpatient setting please ask the following questions: Do you have fever of higher than 101, sore throat with difficulty swallowing or severe shortness ofbreath? no If YES to any of these above symptoms, send a message to triage and do not book. Red dot. If no, an audio or video visit should be booked. Have you had close contact with someone with Coronavirus in the last 14 days? no Have you traveled abroad? no Have you traveled recently to another state outside of [place], [place], [place], [place], [place], [place], [place]? no o If yes, did you quarantine for 14 days or have a negative covid test? no If yes to any of the above, patient is not to be scheduled in office until after 14 day quarantine or negative covid test. If pain or injury related was it due to an accident at work or from a motor vehicle accident? If yes, date of accident/Injury: No If yes, gather 3rd democrat insurance information Third Democrat Information: not applicable PCP: Santino Curiel MD Payor: MEDICARE / Plan: MEDICARE PART A & B / Product Type: Medicare / documented in this encounter Plan of Treatment Upcoming Encounters Date Type Department Care Team (Late st Contact Info) Description 05/24/2025 1:00 PM EDT Medication Management Adult Medicine [facility] [address] [place] [address] Yakelin Pack, PharmD [address] [place] [address] 06/17/2025 1:15 PM EDT Office Visit Internal Medicine - [address] [phone] Santino Curiel MD [address] [place] [phone] documented as of this encounter Visit Diagnoses Not on filedocumented in this encounter Care Teams Trauma Manager Relationship Specialty Start Date End Date Santino Curiel MD [address] [place] [address] PCP - General Internal Medicine 10/04/24 documented as of this encounter
--- OUTSIDE RECORDS SUMMARY | 2025-05-15 11:31 | XMS_ITS | Clinical Summary ---
Author Organization [facility] Address [address] [place] [id number] Phone Care Team Providers Care Global Compensation Director Name Role Phone Clark Baron MD Unavailable [phone] John Witt MD Unavailable [phone] Shayy Parks MD Unavailable Unavailable Santino Curiel MD Primary Care Provider + John Witt MD Unavailable [phone] Allergies No known active allergies Medications simvastatin (ZOCOR) 40 MG tablet Take 40 mg by mouth nightly. Active meclizine (ANTIVERT) 12.5 mg tablet Take 12.5 mg by mouth 3 (three) times a day as needed. Active metFORMIN (GLUCOPHAGE) 1000 MG tablet Take 1,000 mg by mouth 2 (two) times a day with meals. Active glipiZIDE (GLUCOTROL) 10 MG 24 hr tablet Take 10 mg by mouth daily. Active LORazepam (ATIVAN) 0.5 MG tablet Take 0.5 mg by mouth every 6 (six) hours as needed for anxiety. Active insulin glargine (LANTUS) 100 unit/mL injection vial Inject 26 Units under the skin nightly. 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 Overview (10/12/2014): Paraneoplastic syndrome Hyperlipidemia Encounters Date Type Department Care Team Description 03/06/2025 2:00 PM EDT Office Visit [facility], [facility] [place] [facility] [place] [address] [address] Clark Baron MD 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) 03/06/2025 8:34 AM EDT - 03/06/2025 11:59 PM EDT Hospital Encounter [facility], [place] [address] [address] Clark Baron MD Discharge Disposition: Home or Self Care 03/06/2025 7:35 AM EDT - 03/06/2025 8:33 AM EDT Hospital Encounter [facility], [facility] [address] [address] Clark Baron MD Discharge Disposition: Home or Self Care 01/09/2025 [place] [address] [address] 01/09/2025 [place] [address] [address] 01/09/2025 Procedure Pass [facility], [facility] [address] [address] from Last 3 Months Immunizations Immunization Administration Dates Next Due Influenza, Unspecified Formulation 11/18(Deferred: Patient Decision - patient/family refuses) Pneumococcal polysaccharide PPSV23 11/18(Deferred: Patient Decision - patient/family refuses) Family History Medical History Relation Comments Coronary artery disease Father possible [place] Cancer Neg Hx Relation Status Comments Father Social History Tobacco Use Types Packs/Day Years [...] your housing situation today? I have evelin sing 01/09/2025 How many times have you moved [...] file Not on file Not on file Last Filed Vital Signs Vital Sign Reading Time Taken Comments Blood Pressure 180/80 03/06/2025 12:19 PM EDT Pulse 73 03/06/2025 12:10 PM EDT Temperature 35.9 C (96.7 F) 03/06/2025 12:10 PM EDT Respiratory Rate 16 03/06/2025 12:10 PM EDT Oxygen Saturation 97% 03/06/2025 12:10 PM EDT Inhaled Oxygen Concentration - - Weight 68 kg (150 lb) 01/02/2018 3:35 PM EDT Height 167.6 cm (5' 6 ) 01/02/2018 3:35 PM EDT Body Mass Index 24.21 01/02/2018 3:35 PM EDT Plan of Treatment Health Maintenance Due Date Last Done Comments Adult Td,Tdap Booster 1954 DEPRESSION SCREENING 1966 SMOKING Hx and SMOKELESS TOBACCO SCREENING 10/21/1967 PNEUMOCOCCAL VACCINES (50+ years) (1 of 2 - PCV) 1973 ZOSTER VACCINES (1 of 2) 1973 COLOGUARD 10/21/1999 COLONOSCOPY 10/21/1999 COLORECTAL CANCER SCREENING 10/21/1999 FIT TEST 10/21/1999 FOBT 10/21/1999 SIGMOIDOSCOPY 10/21/1999 VIRTUAL COLONOSCOPY 10/21/1999 DIABETIC EYE EXAM 10/12/2014 URINE MICROALBUMIN/CREATININE RATIO 10/12/2014 RSV VACCINE (1 - Risk 60-74 years 1-dose series) 2014 HEMOGLOBIN A1C 03/11/2025 12/10/2024, 0809/2023, 01/02/2018 INFLUENZA VACCINE (#1) 2025 COVID-19 VACCINE ( season) 2025 04/05/2022, 06/18/2021, 11/22/2020 BLOOD PRESSURE 09/06/2025 03/06/2025 CREATININE LEVEL 03/06/2026 03/06/2025, 08/2021, 12/25/2018, Additional history exists HEPATITIS C SCREENING Completed 11/18/2008 ABDOMINAL AORTIC ANEURYSM (AAA) SCREENING Completed 03/06/2025, 02/19/2022 HEPATITIS A VACCINES Aged Out No long er eligible based on patient's age to complete this topic HIB VACCINES Aged Out No longer eligi ble based on patient's age to complete this topic MENINGOCOCCAL VACCINES (ACWY) Aged Out No longer eligible based on patient's age to complete this topic MENINGOCOCCAL VACCINES (B) Aged Out N o longer eligible based on patient's age to complete this topic Medical Devices Not on file Procedures Procedure Name Priority Date/Time Associated Diagnosis Comments CT ABDOMEN/PELVIS WITH CONTRAST Routine 03/06/2025 10:48 AM EDT 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 CT CHEST WITH CONTRAST Routine 10:48 AM EDT 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 MRI BRAIN WITH AND WITHOUT CONTRAST Routine 03/06/2025 8:33 AM EDT 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 Unchanged postsurgical/postradiation appearance of the left lung. No definitive evidence of recurrent malignancy or new site of malignant/metastatic disease in the chest. 2. Unchanged prominent to mildly enlarged mediastinal and right hilar lymph nodes, which may be inflammatory in etiology. 3. Unchanged trace left pleural effusion, which may be inflammatory in etiology. 4. Concurrent CT abdomen/pelvis reported separately. ATTESTATION: Alejandra Jaimes, as teaching physician have reviewed the images, if any, for this patient's exam, and if necessary, have edited the report originally created by Wli Shahid. Narrative 03/06/2025 2:[address] CHEST WITH CONTRAST Referring clinician's provided indication for this examination in [facility]: * Small cell lung cancer, assess treatment response; h/o small cell with paraneoplastic ataxia TECHNIQUE: Multidetector CT of the chest was performed with intravenous contrast using tailored dose modulation techniques. COMPARISON: CT CHEST WITH CONTRAST FINDINGS: Devices/Tubes/Lines: None. Lungs: Left upper lobe wedge resection; unchanged appearance of the resection margins. Unchanged left perihilar radiation fibrosis extending to the left upper and left lower lobes. Unchanged scattered 2 to 3 mm nodules which may represent intrapulmonary lymph nodes, for example 3 mm right upper lobe perifissural nodule (4:207) and 2 mm left upper lobe nodule (4:59). No new suspicious nodule. Diffuse mild bronchial wall thickening, which may be inflammatory in etiology. Pleura: Unchanged trace left pleural effusion. No right pleural effusion. No pneumothorax. Mediastinum: Unchanged 22 x 18 mm hypoattenuating thyroid nodule with internal calcifications in the right lobe of thyroid (4:36), incompletely characterized in CT imaging. Heart size is normal. Mild to moderate coronary artery calcifications. No pericardial effusion. 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 Lymph Nodes: Unchanged prominent to mildly enlarged mediastinal right hilar lymph nodes, for example 13 x 10 mm right upper paratracheal node (2:18), 8 x 6 mm right lower paratracheal node (2:34), 13 x 9 mm subcarinal node (2:46), 17 x 12 mm right hilar node (2:42), and 13 x 8 mm right interlobar node (2:54). Upper Abdomen: Concurrent CT abdomen/pelvis reported separately. Chest Wall: No suspicious lesion. Bones: No suspicious osseous lesion. Procedure Note Alejandra Redmond MD - 03/06/2025 CT CHEST WITH CONTRAST Referring clinician's provided indication for this examination in [facility]: *Small cell lung cancer, assess treatment response; h/o small cell withparaneoplastic ataxia TECHNIQUE: Multidetector CT of the chest was performed with intravenouscontrast using tailored dose modulation techniques. COMPARISON: CT CHEST WITH CONTRAST FINDINGS: Devices/Tubes/Lines: None. Lungs: Left upper lobe wedge resection; unchanged appearance of theresection margins. Unchanged left perihilar radiation fibrosis extendingto the left upper and left lower lobes. Unchanged scattered 2 to 3 mmnodules which may represent intrapulmonary lymph nodes, for example 3 mmright upper lobe perifissural nodule (4:207) and 2 mm left upper lobenodule (4:59). No new suspicious nodule. Diffuse mild bronchial wallthickening, which may be inflammatory in etiology. Pleura: Unchanged trace left pleural effusion. No right pleural effusion.No pneumothorax. Mediastinum: Unchanged 22 x 18 mm hypoattenuating thyroid nodule withinternal calcifications in the right lobe of thyroid (4:36), incompletelycharacterized in CT imaging. Heart size is normal. Mild to moderatecoronary artery calcifications. No pericardial effusion. Similar stenosisof the left brachiocephalic vein (4:92). Lymph Nodes: Unchanged prominent to mildly enlarged mediastinal righthilar lymph nodes, for example 13 x 10 mm right upper paratracheal node(2:18), 8 x 6 mm right lower paratracheal node (2:34), 13 x 9 mmsubcarinal node (2:46), 17 x 12 mm right hilar node (2:42), and 13 x 8 mmright interlobar node (2:54). Upper Abdomen: Concurrent CT abdomen/pelvis reported separately. Chest Wall: No suspicious lesion. Bones: No suspicious osseous lesion. IMPRESSION: Compared to 02/19/2022: 1. Unchanged postsurgical/postradiation appearance of the left lung. Nodefinitive evidence of recurrent malignancy or new site ofmalignant/metastatic disease in the chest. 2. Unchanged prominent to mildly enlarged mediastinal and right hilarlymph nodes, which may be inflammatory in etiology. 3. Unchanged trace left pleural effusion, which may be inflammatory inetiology. 4. Concurrent CT abdomen/pelvis reported separately. ATTESTATION: Alejandra Jaimes, as teaching physician have reviewed theimages, if any, for this patient's exam, and if necessary, have edited thereport originally created by Wil Shahid. us Clark Baron MD IM CT CHEST Final Resu lt * CT ABDOMEN/PELVIS WITH CONTRAST (03/06/2025 10:48 AM EDT) Anatomical Region Laterality Modality Abdomen, Pelvis Computed Tomogra phy Other 03/06/2025 11:1 6 AM EDT Impressions 03/06/2025 1:59 PM EDT Compared to 02/19/2022: 1. No abdominopelvic metastatic disease. 2. Similar partial soft tissue encasement of infrarenal abdominal aorta and proximal inferior mesenteric and common iliac arteries likely representing retroperitoneal fibrosis. The Radiologist Diagnostic Certainty Scale is a guide that conveys to patients and providers a radiologist's subjective diagnostic confidence: Most likely means very high probability Likely means high probability May represent means intermediate probability Unlikely means low probability Very unlikely means very low probability You can find out more about our efforts to improve the clarity of radiology reports for our patients and providers by visiting [email or web address] ATTESTATION: IKelly, as teaching physician have reviewed the images, if any, for this patient's exam, and if necessary, have edited the report originally created by Martell Arellano. Narrative 03/06/2025 1:[address] ABDOMEN/PELVIS WITH CONTRAST Referring clinician's provided indication for this examination in Epic: * Small cell lung cancer, assess treatment response; h/o small cell with paraneoplastic ataxia Review of the Electronic Medical Record reveals an additional history of: Initial diagnosis of small cell lung cancer in 2009. Status post chemoradiation without evidence of disease recurrence. TECHNIQUE: Multidetector-row CT of the abdomen and pelvis was performed after administration of intravenous contrast using tailored dose modulation techniques. Images were reconstructed in the axial, coronal, and sagittal planes. COMPARISON: CT ABDOMEN/PELVIS WITH CONTRAST ; CT CHEST WITH CONTRAST 10:26:01.000 FINDINGS: Lower Chest: CT chest from the same day is reported separately. Liver: Normal. No focal lesions. Biliary: Cholelithiasis without gallbladder wall thickening or pericholecystic fluid.. No biliary ductal dilatation. Spleen: Normal. No splenomegaly or focal lesions. Pancreas: Normal. No masses or ductal dilatation. Adrenal Glands: Unchanged left adrenal nodule measuring up to 0.9 x 0.7 cm compared with 2021, most likely a benign adenoma. Normal right adrenal gland. Kidneys/Ureters: Similar nonobstructing left renal stones. No solid masses or hydronephrosis. Bowel: Normal. No distention or wall thickening. Peritoneum/Retroperitoneum: Normal. No masses, pneumoperitoneum, or fluid. Lymph Nodes: 1.1 x 0.7 cm right common iliac (1:62), previously 9 x 6 mm, likely reactive. No lymphadenopathy. Pelvic Organs/Bladder: Prostatomegaly. No mass. Vessels: Similar perivascular soft tissue encasing the infrarenal abdominal aorta and proximal inferior mesenteric and common iliac arteries compared with 2021. No abdominal aortic aneurysm. Bones/Soft Tissues: Fat-containing right inguinal hernia. No destructive osseous lesions. Procedure Note Kelly Merlos MD - 03/06/2025 CT ABDOMEN/PELVIS WITH CONTRAST Referring clinician's provided indication for this examination in Epic: *Small cell lung cancer, assess treatment response; h/o small cell withparaneoplastic ataxia Review of the Electronic Medical Record reveals an additional history of:Initial diagnosis of small cell lung cancer in 2009. Status postchemoradiation without evidence of disease recurrence. TECHNIQUE: Multidetector-row CT of the abdomen and pelvis was performedafter administration of intravenous contrast using tailored dosemodulation techniques. Images were reconstructed in the axial, coronal,and sagittal planes. COMPARISON: CT ABDOMEN/PELVIS WITH CONTRAST ; CT CHEST WITHCONTRAST 10:26:01.000 FINDINGS: Lower Chest: CT chest from the same day is reported separately. Liver: Normal. No focal lesions. Biliary: Cholelithiasis without gallbladder wall thickening orpericholecystic fluid.. No biliary ductal dilatation. Spleen: Normal. No splenomegaly or focal lesions. Pancreas: Normal. No masses or ductal dilatation. Adrenal Glands: Unchanged left adrenal nodule measuring up to 0.9 x 0.7 cmcompared with 202, most likely a benign adenoma. Normal right adrenalgland. Kidneys/Ureters: Similar nonobstructing left renal stones. No solid massesor hydronephrosis. Bowel: Normal. No distention or wall thickening. Peritoneum/Retroperitoneum: Normal. No masses, pneumoperitoneum, orfluid. Lymph Nodes: 1.1 x 0.7 cm right common iliac (1:62), previously 9 x 6 mm,likely reactive. No lymphadenopathy. Pelvic Organs/Bladder: Prostatomegaly. No mass. Vessels: Similar perivascular soft tissue encasing the infrarenalabdominal aorta and proximal inferior mesenteric and common iliac arteriescompared with 2021. No abdominal aortic aneurysm. Bones/Soft Tissues: Fat-containing right inguinal hernia. No destructiveosseous lesions. IMPRESSION: Compared to 02/19/2022: 1. No abdominopelvic metastatic disease. 2. Similar partial soft tissue encasement of infrarenal abdominal aortaand proximal inferior mesenteric and common iliac arteries likelyrepresenting retroperitoneal fibrosis. The Radiologist Diagnostic Certainty Scale is a guide that conveys topatients and providers a radiologist's subjective diagnostic confidence: Most likely means very high probability Likely means high probability May represent means intermediate probability Unlikely means low probability Very unlikely means very low probability You can find out more about our efforts to improve the clarity ofradiology reports for our patients and providers by [email or web address] ATTESTATION: IKelly, as teaching physician have reviewed theimages, if any, for this patient's exam, and if necessary, have edited thereport originally created by Martell Arellano. us Clark Baron MD IMG CT ABD/PELVIS Final Re sult * MRI BRAIN WITH AND WITHOUT CONTRAST (03/06/2025 8:33 AM EDT) Anatomical Region Laterality Modality Head Magnetic Resonan ce Other 03/06/2025 10:2 3 AM EDT Impressions 03/06/2025 10:49 AM EDT 1. No evidence of enhancing intracranial metastatic disease. 2. Differentially increased volume loss in the cerebellum. 3. Increased periventricular and scattered white matter hyperintensities, likely due to chronic microvascular ischemia. Narrative 03/06/2025 10:49 AM EDT MRI BRAIN WITH AND WITHOUT CONTRAST Referring clinician's provided indication for this examination in Epic: * Small cell lung cancer, assess treatment response; h/o small cell with paraneoplastic ataxia TECHNIQUE: MRI BRAIN WITH AND WITHOUT CONTRAST Multi-sequence, multi-planar MRI of the brain was performed before and after intravenous contrast. COMPARISON: MRI brain 11/22/2016 and 11/16/2010. FINDINGS: Brain Parenchyma: No evidence of acute infarct, mass, hemorrhage or abnormal enhancement. There are scattered foci of T2 hyperintensity in the white matter, likely a manifestation of chronic small vessel disease. Compared with 11/22/2016, periventricular and scattered white matter FLAIR hyperintensities are increased in number and size. Small amount of linear susceptibility artifact in the left parietal lobe. Ventricular System and Extra-Axial Spaces: There is no evidence of midline shift or hydrocephalus. Slightly increased sulcal prominence in the supratentorial brain. There is a differential increased volume loss in the cerebellum with increased white matter FLAIR hyperintensity. Extracranial Structures: Expected arterial flow signal is observed at the skull base. Procedure Note Wiliam Moeller MD - 03/06/2025 MRI BRAIN WITH AND WITHOUT CONTRAST Referring clinician's provided indication for this examination in Epic: *Small cell lung cancer, assess treatment response; h/o small cell withparaneoplastic ataxia TECHNIQUE: MRI BRAIN WITH AND WITHOUT CONTRAST Multi-sequence, multi-planar MRI of the brain was performed before andafter intravenous contrast. COMPARISON: MRI brain 11/22/2016 and 11/16/2010. FINDINGS: Brain Parenchyma: No evidence of acute infarct, mass, hemorrhage orabnormal enhancement. There are scattered foci of T2 hyperintensity in thewhite matter, likely a manifestation of chronic small vessel disease.Compared with 11/22/2016, periventricular and scattered white matter FLAIRhyperintensities are increased in number and size. Small amount of linearsusceptibility artifact in the left parietal lobe. Ventricular System and Extra-Axial Spaces: There is no evidence of midlineshift or hydrocephalus. Slightly increased sulcal prominence in thesupratentorial brain. There is a differential increased volume loss in thecerebellum with increased white matter FLAIR hyperintensity. Extracranial Structures: Expected arterial flow signal is observed at theskull base. IMPRESSION: 1. No evidence of enhancing intracranial metastatic disease. 2. Differentially increased volume loss in the cerebellum. 3. Increased periventricular and scattered white matter hyperintensities,likely due to chronic microvascular ischemia. us Clark Baron MD IMG MR HEAD/NECK Final Res ult * (ABNORMAL) Comprehensive metabolic panel (03/06/2025 7:33 AM EDT) SODIUM 143 136 - 145 mmol/L [facility]# [id number] POTASSIUM 4.6 3.4 - 5.1 mmol/L [facility]# [id number] CHLORIDE 106 98 - 107 mmol/L [facility]# [id number] CO2 27 22 - 31 mmol/L [facility]# [id number] BUN 16 6 - 23 mg/dL [facility]# [id number] CREATININE 0.70 0.50 - 1.20 mg/dL [facility]# [id number] GLUCOSE 143(H) 70 - 100 mg/dL [facility]# [id number] ALBUMIN 3.5 3.5 - 5.2 g/dL [facility]# [id number] TOTAL PROTEIN 6.5 6.4 - 8.3 g/dL [facility]# [id number] CALCIUM 9.4 8.8 - 10.7 mg/dL [facility]# [id number] ALKALINE PHOSPHATASE 87 40 - 129 U/L [facility]# [id number] TOTAL BILIRUBIN 0.3 0.2 - 1.2 mg/dL [facility]# [id number] AST 21 <41 U/L [facility]# [id number] ALT 22 <42 U/L [facility]# [id number] GLOBULIN 3.0 2.3 - 4.2 g/dL [facility]# [id number] EGFR 99 >59 mL/min/1.7 3m2 [facility]# [id number] Comment:Estimated glomerular filtration rate calculated using the CKD-EPI refit equation. ANION GAP 10 7 - 17 mmol/L [facility]# [id number] Blood 03/06/2025 7:33 AM EDT 03/06/2025 7:41 AM EDT us Clark Baron MD LAB BLOOD ORDERABLES Final Result [facility]# [id number] [address] [place] [address], [facility] * (ABNORMAL) CBC and differential (03/06/2025 7:33 AM EDT) WBC 6.08 4.00 - 10.00 K/uL [facility]# [id number] RBC 3.76(L) 4.50 - 6.40 M/uL [facility]# [id number] HGB 10.8(L) 13.5 - 18.0 g/dL [facility]# [id number] HCT 32.4(L) 40.0 - 54.0 % [facility]# [id number] PLT 207 150 - 450 K/uL [facility]# [id number] MCV 86.2 80.0 - 100.0 fL [facility]# [id number] MCH 28.7 27.0 - 32.0 pg [facility]# [id number] MCHC 33.3 32.0 - 36.0 g/dL [facility]# [id number] RDW 12.8 11.5 - 14.5 % [facility]# [id number] MPV 9.9 8.4 - 12.0 fL [facility]# [id number] NRBC 0.00 0.00 /100 WBCs [facility]# [id number] ABSOLUTE NRBC 0.00 0 K/uL [facility]# [id number] DIFF METHOD Auto [facility]# [id number] NEUTS 60.5 48.0 - 76.0 % [facility]# [id number] LYMPHS 23.5 18.0 - 41.0 % [facility]# [id number] MONOS 12.2(H) 4.0 - 11.0 % [facility]# [id number] EOS 2.8 0.0 - 5.0 % [facility]# [id number] BASOS 0.5 0.00 - 1.50 % [facility]# [id number] % IMMATURE GRANS 0.5 0.00 - 1.00 % [facility]# [id number] ABSOLUTE NEUTS 3.68 1.92 - 7.60 K/uL [facility]# [id number] ABSOLUTE LYMPHS 1.43 0.72 - 4.10 K/uL [facility]# [id number] ABSOLUTE MONOS 0.74 0.16 - 1.10 K/uL [facility]# [id number] ABSOLUTE EOS 0.17 0.00 - 0.50 K/uL [facility]# [id number] ABSOLUTE BASOS 0.03 0.00 - 0.15 K/uL [facility]# [id number] ABS IMMATURE GRANS 0.03 0.00 - 0.10 K/uL [facility]# [id number] Blood 03/06/2025 7:33 AM EDT 03/06/2025 7:41 AM EDT us Clark Baron MD LAB BLOOD ORDERABLES Final Result [facility]# [id number] [address] * (ABNORMAL) Hemoglobin A1c (01/02/2018 3:43 PM EDT) HEMOGLOBIN A1C 8.2(H) 4.2 - 5.8 % [facility] CALC MEAN BLD GLUC 189 mg/dL [facility] Comment: There is no established normal range for the CMBG (Calculated Mean Blood Glucose). A hemoglobin A1c < 7% is the recommended target for most people with diabetes. The CMBG for an A1c of 7% is 154 mg/dL. The diagnostic hemoglobin A1c level for diabetes is greater than or equal to 6.5% which is a CMBG greater than or equal to 140 mg/dL. Blood 01/02/2018 3:43 PM EDT 01/02/2018 4:34 PM EDT Natanael Mendieta MD, PhD LAB BLOOD ORDERABLES Fin al Result [facility] [address] [place] [id number] from Last 3 Months or Most Recently Relevant to Health Maintenance Insurance [employer] [facility] [place] [facility] [facility] [place] [facility] [facility] [place] & [place] PART A & B Advance Directives For more information, please contact: [phone] (9AM - 5PM [facility], Tuesday-Tuesday) Documents on File Type Date Recorded Patient Packer Denture Expl anation Advance Directive - Non Epic LMR 06/08/2010 12:00 AM Care Teams Global Compensation Director Relationship Specialty Start Date End Date Santino Curiel MD [address] [place] [address] PCP - General Internal Medicine 11/09/24 Clark Baron MD [address] [place] [address] [email or web address] 11/24/15 John Witt MD [address] [place] [phone] Thoracic Surgery 12/26/17 Shayy Parks MD Radiation Oncology 12/26/17 John Witt MD [address] [place] [address] Referring Physician Thoracic Surgery 11/09/24 Additional Source Comments The information contained in this document represents components of the legal health record. It is not the complete legal health record.[facility]
--- OUTSIDE RECORDS SUMMARY | 2025-05-15 11:31 | XMS_ITS | Encounter Summary ---
Author Organization [facility] Address [address] [place] [address] Phone Care Team Providers Care Kitchen Stewardess Name Role Phone Clark Baron MD Unavailable [phone] Santino Curiel MD Primary Care Provider + John Witt MD Unavailable [phone] Shayy Parks MD Unavailable Unavailable Santino Curiel MD Primary Care Provider + John Witt MD Unavailable [phone] Encounter Details Date Type Department Care Team (Late st Contact Info) Description 02/16/2022 Procedure Pass [facility], [facility] [place], [place] [address] [facility], [address] [place] [address] Social History Tobacco Use Types Packs/Day Years [...] on filedocumented in this encounter Care Teams Kitchen Stewardess Relationship Specialty Start Date End Date Santino Curiel MD [address] [place] [address] PCP - General Internal Medicine 11/22/16 11/08/24 Santino Curiel MD [address] [place] [address] PCP - General Internal Medicine 11/09/24 Clark Baron MD [address] [place] [phone] [email or web address] 11/24/15 John Witt MD [address] [place] [address] Thoracic Surgery 12/26/17 Shayy Parks MD Radiation Oncology 12/26/17 John Witt MD [address] [place] [phone] [email or web address] Referring Physician Thoracic Surgery 11/09/24 documented as of this encounter Additional Source Comments The information contained in this document represents components of the legal health record. It is not the complete legal health record.[facility]
--- OUTSIDE RECORDS SUMMARY | 2025-05-15 11:31 | XMS_ITS | Encounter Summary ---
Author Organization [facility] Address [address] [place] [address] Care Team Providers Care Formulation Technician Name Role Phone Santino Curiel MD Primary Care Provider [phone] Reason for Referral * Consultation (Routine) - Authorized Specialty Diagnoses / Procedures Referred By Nathalia t Referred To Contact Endocrinology Diagnoses Type 2 diabetes mellitus with neurological manifestations, controlled (CMS/HCC V24, CMS/HCC V28) Nolan Santos NP [address] [place] [address] Phone: tel: fax: Endocrinology [address] Phone: tel: fax: Referral ID Status Reason Start Date Expiration Date Visits Requested Visits Authorized [id number] Authorized Specialty Services Required 04/16/2025 04/16/2026 1 1 Reason for Visit * Reason Onset Date Comments Follow-up 04/16/2025 structural manager inf orming the patient's blood sugars still running high Encounter Details Date Type Department Care Team ([facility] Contact Info) Description 04/16/2025 Telephone Internal Medicine - [address] [address] Kellen Thompson RN Social History Tobacco Use Types Packs/Day Years [...] for your loved ones. For example, child and adolescent therapist or elderly care for an older adult? [...] as of this encounter Progress Notes * Nolan Santos NP - 04/16/2025 5:22 PM EDT Signed * Michelle Garcia RN - 04/16/2025 4:48 PM EDT spoke to daughter Chiquis (vr)-reports of pt feeling better today with bld sugar of 140 (fasting). denies of pt feeling shaky/tremors/light-headedness. Pt takes glipizide twice daily and is currently not taking metformin due to lactic acidosis episode(see 04/11/25 o.v. notes). Reminded of coming appt with pharmacist for medcn mgmt. She requested for endocrin. ref. For DM magmt-pended for approval. * Saranya Edouard - 04/16/2025 3:35 PM EDT Patient returned missed call and would like another call back * Kellen Thompson RN - 04/16/2025 1:39 PM EDT Attempted to contact patient's daughter reached VM please re message to triage documented in this encounter Plan of Treatment Upcoming Encounters Date Type Department Care Team (Late st Contact Info) Description 05/24/2025 1:00 PM EDT Medication Management Adult Medicine - [place] [address] [place] [address] Yakelin Pack, PharmD [address] [place] [address] 06/17/2025 1:15 PM EDT Office Visit Internal Medicine - [address] [phone] Santino Curiel MD [address] [place] [address] Scheduled Referrals Name Type Priority Associated Diagnoses Order Schedule Ambulatory referral to Endocrinology Outpatient Referral Routine Type 2 diabetes mellitus with neurological manifestations, controlled ([facility] [place], [facility] V28) 1 Occurrences starting 04/16/2025 until 04/16/2026 documented as of this encounter Visit Diagnoses Diagnosis Type 2 diabetes mellitus with neurological manifestations, controlled ([facility] V24, [facility] V28)- Primary Type II or unspecified type diabetes mellitus with neurological manifestations, not stated as uncontrolled documented in this encounter Care Teams Formulation Technician Relationship Specialty Start Date End Date Santino Curiel MD [address] [place] [address] PCP - General Internal Medicine 10/04/24 documented as of this encounter
--- OUTSIDE RECORDS SUMMARY | 2025-05-15 11:31 | XMS_ITS | Encounter Summary ---
Author Organization [facility] [place] [address] Care Team Providers Care Power Bender Operator Name Role Phone Santino Curiel MD Primary Care Provider [phone] Reason for Visit * Reason Onset Date Comments Follow-up 04/10/2025 sr. social media & mobile manager inf orming the patient did not go to the ER as instructed yesterday Encounter Details Date Type Department Care Team (Late st Contact Info) Description 04/10/2025 Telephone Internal Medicine - [place] [address] [place] [address] Kellen Thompson RN Social History Tobacco Use [...] your loved ones. For example, child care attendant school or elderly care for an older adult? [...] Progress Notes * Kellen Thompson RN - 04/10/2025 12:48 PM EDT Patient did not go to the ER after being instructed to for a blood sugar of 500. Patient has TCM 04/11 documented in this encounter Plan of Treatment Upcoming Encounters Date Type Department Care Team (Late st Contact Info) Description 05/24/2025 1:00 PM EDT Medication Management Adult Medicine - [place] [address] [place] [address] Yakelin Pack, PharmD [address] [place], [place] [phone] 06/17/2025 1:15 PM EDT Office Visit Internal Medicine - [address] [phone] Santino Curiel MD [address] [place] [address] documented as of this encounter Visit Diagnoses Not on filedocumented in this encounter Care Teams Power Bender Operator Relationship Specialty Start Date End Date Santino Curiel MD [address] [place] [address] PCP - General Internal Medicine 10/04/24 documented as of this encounter
== END 2025-05-15 10:47 | disposition home or self-care (01) ==
LOC: HO.HSM 09:37
PROVIDERS: PCP Internal Medicine; Visit Provider Psychiatry & Neurology Neurology
DX: D49.89 Neoplasm of unspecified behavior of other specified sites (principal); G32.81 Cerebellar ataxia in diseases classified elsewhere; M25.561 Pain in right knee; M25.562 Pain in left knee; E11.8 Type 2 diabetes mellitus with unspecified complications; M79.10 Myalgia, unspecified site
CPT/HCPCS: 99205

== ENCOUNTER 2025-05-15 09:37 | Outpatient (REF) | payer MEDICARE, MEDICAID, SELFPAY ==
[2025-05-16 21:33] LABS: Lyme Abs Screen <0.90 index
== END 2025-05-15 09:38 | disposition home or self-care (01) ==
LOC: HO.LAB 09:37
PROVIDERS: PCP Internal Medicine; Visit Provider Psychiatry & Neurology Neurology
DX: D49.9 Neoplasm of unspecified behavior of unspecified site (principal); M79.10 Myalgia, unspecified site; E11.9 Type 2 diabetes mellitus without complications; G32.81 Cerebellar ataxia in diseases classified elsewhere; M25.561 Pain in right knee; M25.562 Pain in left knee; Z01.84 Encounter for antibody response examination; Z79.82 Long term (current) use of aspirin; Z79.4 Long term (current) use of insulin
CPT/HCPCS: 36415; 82085; 82550; 85652; 86617; 86618; 99202

== ENCOUNTER 2025-05-21 11:16 | Outpatient (REF) | payer MEDICARE, MEDICAID, SELFPAY ==
--- OUTSIDE RECORDS SUMMARY | 2025-05-21 12:43 | XMS_ITS | Clinical Summary ---
Author Organization [facility] Address [address] [place] [address] Phone Care Team Providers Care Medical Staff Services Manager Name Role Phone Santino Curiel MD Primary Care Provider [phone] Allergies No known active allergies Medications glucose blood (Blood Glucose Test) test strip ONE TOUCH BASIC STRIPS 4 times daily. One touch ultra test strips Active atorvastatin (LIPITOR) 80 mg tablet Take 1 tablet (80 mg total) by mouth at bedtime. 90 each 1 12/11/19 25 025 Active lisinopriL (PRINIVIL,ZESTR IL) 10 mg tablet [...] Active pen needle, diabetic 32 gauge x 5/32 needle USE WITH INSULIN PEN 4 x [...] at bedtime. 30 tablet 05/09/20 25 Active aspirin 81 mg EC tablet Take 1 tablet (81 mg total) by mouth 1 (one) time each day. 90 tablet 11/07/19 25 025 Discontinued lidocaine (LIDODERM) 5 % patch Apply 1 patch topically 1 (one) time each day. Apply to painful area 12 hours per day, remove for 12 hours. 30 each 2 01/16/20 25 025 Discontinued pen needle, diabetic 32 gauge x 5/32 needle USE WITH INSULIN PEN ONCE DAILY. 100 each 1 02/27/20 25 025 Discontinued(Re order) tiZANidine (ZANAFLEX) 4 mg tablet Take 1 tablet (4 mg total) by mouth at bedtime. 30 tablet 04/11/20 25 025 Discontinued(Re order) dulaglutide (TRULICITY) 0.75 mg/0.5 mL pen injector injectionIndica tions:Type 2 diabetes mellitus with neurological manifestations, controlled ([facility] V24, [facility] V28) Inject 0.5 mL (0.75 mg total) under the skin every 7 (seven) days. 2 mL 1 04/19/20 025 Discontinued(Th erapy completed) insulin aspart (NovoLOG Flexpen U-100 Insulin) 100 unit/mL (3 mL) injection pen Inject 5 Units under the skin 3 (three) times a day with meals for 1 day. Please dispense brand or generic. Whichever is covered 15 mL 1 05/03/20 025 Discontinued(Re order) ciprofloxacin (CIPRO) 500 mg tablet Take 1 tablet (500 mg total) by mouth 2 (two) times a day for 10 days. 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 Overview (07/11/2024): [facility] Type 2 diabetes mellitus wit h neurological manifestations, controlled ([facility] V24, [facility] V28) 07/09/2015 Encounters Date Type Department Care Team Description 05/20/2025 Telephone Internal Medicine - [place] [address] [place] [address] Kellen Thompson RN 05/10/2025 6:00 PM EDT Office Visit Walk-In Clinic - [address] [phone] Ezekiel Horner PA Acute cystitis without hematuria (Primary Dx); History of sepsis 05/10/2025 [facility] [address] [phone] Santino Curiel MD 05/08/2025 [facility] [address] [phone] Santino Curiel MD 04/16/2025 [facility] [address] [phone] Kellen Thompson RN 04/11/2025 10:00 AM EDT Office Visit Internal [address] [phone] Santino Curiel MD Sepsis, due to unspecified organism, unspecified whether acute organ dysfunction present ([facility] V24, [facility] V28) (Primary Dx); At risk for sepsis due to urinary tract infection; Myalgia; Uncontrolled diabetes mellitus of other type with hypoglycemia, unspecified hypoglycemia coma status ([facility] V24, [facility] V28) 04/10/2025 [facility] [address] [phone] Kellen Thompson RN 04/09/2025 Telephone Internal Medicine [address] [phone] Santino Curiel MD 04/09/2025 [facility] [address] [phone] Kellen Thompson RN 04/09/2025 [facility] [address] [phone] Santino Curiel MD 04/08/2025 Telephone Internal Medicine - [address] [phone] Santino Curiel MD 04/05/2025 3:15 PM EDT Office Visit Walk-In [facility] - [address] [phone] Ezekiel Horner PA Acute cystitis without hematuria (Primary Dx); Fever of unknown origin (FUO) 04/05/2025 Telephone Walk-In Clinic - [place] [address] [place] [address] Ezekiel Horner PA 04/05/2025 Telephone Internal Medicine [address] [phone] Santino Curiel MD 04/03/2025 Telephone Internal Medicine - [address] [phone] Santino Curiel MD from Last 3 Months Immunizations Immunization Administration Dates Next Due Pfizer SARS-CoV-2 COVID-19, [...] do you feel lonely or isolated from ose around you? Never 04/16/2025 Food Risk [...] for your loved ones. For example, child & adolescent psychiatrist or elderly care for an older adult? [...] Date Recorded What is your living situation? Unrecognized valu e 04/16/2025 Sex and Gender Information Value Date [...] Care Team (Late st Contact Info) Description 05/23/2025 10:00 AM EDT Office Visit Internal Medicine - [address] [phone] Santino Curiel MD [address] [place] [address] 05/24/2025 1:00 PM EDT Medication Management Adult Medicine - [address] [phone] Yakelin Pack, PharmD [address] [place] [address] 06/17/2025 1:15 PM EDT Office Visit Internal Medicine - [address] [phone] Santino Curiel MD [address] [place] [address] Health Maintenance Due Date Last Done Comments Colorectal Cancer Screening: Colonoscopy 1954 Diabetes: Annual Foot Exam 1964 Diabetes: Annual Retina Eye Exam 1964 DTaP,Tdap,and Td Vaccines (1 - Tdap) 1973 Pneumococcal Vaccine: 50+ Years (1 of 2 - PCV) 1973 Zoster Vaccines (1 of 2) 1973 RSV Immunization Adult Patients (1 - Risk 60-74 years 1-dose series) 2014 Hepatitis C Screening 07/31/2022 Diabetes: Annual Urine [...] Procedure Name Priority Date/Time Associated Diagnosis Comments EXTERNAL CLINICAL LAB 05/20/2025 EXTERNAL CLINICAL LAB 05/17/2025 EXTERNAL CLINICAL LAB 05/16/2025 POC URINE NON-AUTO W/O MICRO Routine 05/10/2025 [...] Fever of unknown origin (FUO) POC RAPID [id number], MOLECULAR Routine 04/05/2025 4:06 PM EDT Fever [...] neurological manifestations, controlled (CMS/HCC V24, CMS/HCC V28) LIPID PANEL WITH REFLEX TO DIRECT LDL Routine 12/10/2024 3:19 PM EDT Type 2 diabetes mellitus with neurological manifestations, controlled ([facility] V24, [facility] V28) DEPRESSION SCREENING Routine 04/02/2024 FALLS RISK ASSESSMENT Routine 04/02/2024 URINE ALBUMIN CREATININE RATIO Routine 04/01/2023 from Last 3 Months or Most Recently Relevant to Health Maintenance Results * External clinical lab (05/20/2025) Only the most recent of3 resultswithin the time period is included. Provider [facility] LAB BLOOD ORDERABLES Fin al Result * (ABNORMAL) POC Urine Non-Auto W/O Micro (05/10/2025 6:35 PM EDT) Only the most recent of2 resultswithin the time period is included. GLUCOSE POC Negative Negative, Trace mg/dL Leukocytes UA POC 2+(A) Negative mg/dL Nitrite UA POC Positive Urobilinogen UA POC 0.2 E.U./dL mg/dL Protein UA POC Positive Positive, Negative PH UA POC 5.0 [place]/ UA POC 250(A) Negative Specific [place] UA POC 1.015 Ketones UA POC Negative [...] - AUTOMATED METHOD 05/10/2025 8:06 PM EDT [facility] WBC, Urine 166.5(H) 0 - 4 /HPF LAB URINALYSIS - AUTOMATED METHOD 05/10/2025 8:06 PM EDT [facility] Squamous Epithelial, Urine 2 0 - 60 /LPF LAB URINALYSIS - AUTOMATED METHOD 05/10/2025 8:06 PM EDT [facility] Bacteria, Urine Many(A) Negative /HPF LAB URINALYSIS - AUTOMATED METHOD 05/10/2025 8:06 PM EDT [facility] Hyaline Casts, Urine 1.6 0 - 3 /LPF LAB URINALYSIS - AUTOMATED METHOD 05/10/2025 8:06 PM EDT [facility] Urine Urine specimen obtained by clean catch procedure / Unknown Non-blood Collection / Unknown 05/10/2025 6:31 PM EDT 05/10/2025 6:31 PM EDT us Ezekiel KLEIN LAB URINE ORDERABLES Final Result [facility] [address] [place] [address], [place] [phone] * (ABNORMAL) Culture urine (05/10/2025 6:31 PM EDT) Only the most recent of2 resultswithin the time period is included. Culture, Urine >=100,000 CFU/mL Escherichia coli(A) GOPAL 05/12/2025 11:19 AM EDT [facility] Urine Urine specimen obtained by [...] Escherichia coli Trimethoprim/Sulfamethoxazole GOPAL <=20 ug/ml: Susceptible us Ezekiel KLEIN LAB MICROBIOLOGY - GENERAL ORDERABLES Final Result [facility] [address] [place] [address], [place] [phone] * POC Influenza A/B manually resulted (04/05/2025 4:07 PM EDT) [facility] Rapid Influenza A AGN POC Negative Negative Rapid Influenza B AGN POC Negative Negative Swab 04/05/2025 4:07 PM EDT us Ezekiel KLEIN POINT OF CARE TEST ENTER/E DIT ORDERABLES Final Result * Poc Rapid [id number], MOLECULAR (04/05/2025 4:06 PM EDT) [facility] COVID-19/SARS- COV-2 Rapid POC Negative Negative Swab Nasopharyngeal structure / Unknown 04/05/2025 4:06 PM EDT us Ezekiel KELIN POINT OF CARE TEST ENTER/E DIT ORDERABLES Final Result * Creatine kinase (04/04/2025 10:25 AM EDT) [facility] Total CK 134 22 - 269 unit/L LAB CHEMISTRY METHOD 04/04/2025 3:28 PM EDT [facility] Blood Venous blood specimen / Unknown Venipuncture / Unknown 04/04/2025 10:25 AM EDT 04/04/2025 10:25 AM EDT us Santino Curiel MD LAB BLOOD ORDERABLES Final Res ult [facility] [address] [place] [address], * (ABNORMAL) Basic metabolic panel (04/04/2025 10:25 AM EDT) Sodium 140 133 - 145 mmol/L LAB CHEMISTRY METHOD 04/04/2025 3:28 PM [facility] Potassium 4.4 3.5 - 5.5 mmol/L LAB CHEMISTRY METHOD 04/04/2025 3:28 PM [facility] Chloride 106 96 - 110 mmol/L LAB CHEMISTRY METHOD 04/04/2025 3:28 PM [facility] CO2 31 21 - 32 mmol/L LAB CHEMISTRY METHOD 04/04/2025 3:28 PM [facility] Anion Gap 3 3 - 11 LAB CHEMISTRY METHOD 04/04/2025 3:28 PM [facility] Glucose 116(H) 70 - 100 mg/dL LAB CHEMISTRY METHOD 04/04/2025 3:28 PM [facility] BUN 22 5 - 25 mg/dL LAB CHEMISTRY METHOD 04/04/2025 3:28 PM [facility] Creatinine 0.87 0.70 - 1.30 mg/dL LAB CHEMISTRY METHOD 04/04/2025 3:28 PM [facility] eGFR 93 >=60 mL/min/1. 73m2 LAB CHEMISTRY METHOD 04/04/2025 3:28 PM [facility] Comment:Calculation based on the Chronic Kidney Disease Epidemiology Collaboration (CKD-EPI) equation refit without adjustment for race. BUN/Creatinine Ratio 25.3 LAB CHEMISTRY METHOD 04/04/2025 3:28 PM EDT [facility] Calcium 9.5 8.5 - 10.5 mg/dL LAB CHEMISTRY METHOD 04/04/2025 3:28 PM EDT [facility] Blood Venous blood specimen / Unknown Venipuncture / Unknown 04/04/2025 10:25 AM EDT 04/04/2025 10:25 AM EDT us Santino Curiel MD LAB BLOOD ORDERABLES Final Res ult [facility] [address] [place] [address], [place] [phone] * Lipid panel with reflex to direct LDL (12/10/2024 3:19 PM EDT) Cholesterol 168 0 - 200 mg/dL LAB CHEMISTRY METHOD 12/10/2024 8:05 PM [facility] Triglycerides 115 0 - 150 mg/dL LAB CHEMISTRY METHOD 12/10/2024 8:05 PM [facility] HDL 54 >=40 mg/dL LAB CHEMISTRY METHOD 12/10/2024 8:05 PM [facility] LDL Calculated 91 0 - 100 mg/dL LAB CHEMISTRY METHOD 12/10/2024 8:05 PM [facility] VLDL Cholesterol Adam 23 mg/dL LAB CHEMISTRY METHOD 12/10/2024 8:05 PM T [facility] Non HDL Chol. (LDL+VLDL) 114 <145 mg/dL LAB CHEMISTRY METHOD 12/10/2024 8:05 PM [facility] Chol/HDL Ratio 3.1 0.0 - 4.4 LAB CHEMISTRY METHOD 12/10/2024 8:05 PM [facility] Blood Venous blood specimen / Unknown Venipuncture / Unknown 12/10/2024 3:19 PM EDT 12/10/2024 3:19 PM EDT Santino Curiel MD LAB BLOOD ORDERABLES Final Res ult Performing Organization Address [facility]/ZIP Co de Phone Number [facility] [address] [place] [address], [place] [phone] * (ABNORMAL) Hemoglobin A1c (12/10/2024 3:19 PM EDT) [facility] Hemoglobin A1C 8.0(H) <6.5 % LAB CHEMISTRY METHOD 12/10/2024 10:01 PM EDT [facility] Mean Bld Glu Estim. 183 mg/dL LAB CHEMISTRY METHOD 12/10/2024 10:01 PM EDT [facility] Blood Venous blood specimen / Unknown Venipuncture / Unknown 12/10/2024 3:19 PM EDT 12/10/2024 3:19 PM EDT Santino Curiel MD LAB BLOOD ORDERABLES Final Res ult Performing Organization Address [facility]/ZIP Co de Phone Number [facility] [address] [place] [address], [place] [phone] * Falls Risk Assessment (04/02/2024) [facility] Falls Risk Assessment Abstracted Historical Provider HEALTH MAINTENANCE Final Result * Depression Screening (04/02/2024) [facility] Depression Screening Abstracted Historical Provider HEALTH MAINTENANCE Final Result * Urine Albumin Creatinine Ratio (04/01/2023) [facility] Urine Albumin Creatinine Ratio Abstracted Historical Provider HEALTH MAINTENANCE Final Result from Last 3 Months or Most Recently Relevant to Health Maintenance Insurance MEDICARE [place]ICAID - [place] Care Teams Medical Staff Services Manager Relationship Specialty Start Date End Date Santino Curiel MD [address] [place] [phone] PCP - General Internal Medicine 10/04/24
--- OUTSIDE RECORDS SUMMARY | 2025-05-21 12:43 | XMS_ITS | Encounter Summary ---
Author Organization [facility] Address [address] [place] [address] Phone Care Team Providers Care Windows Server Engineer Name Role Phone Clark Baron MD Unavailable John Witt MD Unavailable [phone] Shayy Parks MD Unavailable Unavailable Santino Curiel MD Primary Care Provider + John Witt MD Unavailable [phone] Encounter Details Date Type Department Care Team (Late st Contact Info) Description 01/09/2025 Procedure Pass [facility] [place] [facility] [place], [place] [address] [address] Social History Tobacco Use Types [...] on filedocumented in this encounter Care Teams Windows Server Engineer Relationship Specialty Start Date End Date Santino Curiel MD [address] [place] [address] PCP - General Internal Medicine 11/09/24 Clark Baron MD [address] [place] [phone] [email or web address] Medical Oncology 11/24/15 John Witt MD [address] [place] [address] [email or web address] Thoracic Surgery 12/26/17 Shayy Parks MD Radiation Oncology 12/26/17 John Witt MD [address] [place], [place] [id number] [email or web address] Referring Physician Thoracic Surgery 11/09/24 documented as of this encounter Additional Source Comments The information contained in this document represents components of the legal health record. It is not the complete legal health record.[facility]
--- OUTSIDE RECORDS SUMMARY | 2025-05-21 12:43 | XMS_ITS | Encounter Summary ---
Author Organization [facility] Address [address] [place] [address] Phone Care Team Providers Care Mail Messenger Contractor Name Role Phone Clark Baron MD Unavailable [phone] John Witt MD Unavailable [phone] Shayy Parks MD Unavailable Unavailable Santino Curiel MD Primary Care Provider + John Witt MD Unavailable Encounter Details Date Type Department Care Team (Late st Contact Info) Description 01/09/2025 Procedure Pass [facility] [place] [address] [address] Social History Tobacco Use Types [...] on filedocumented in this encounter Care Teams Mail Messenger Contractor Relationship Specialty Start Date End Date Santino Curiel MD [address] [place] [address] PCP - General Internal Medicine 11/09/24 Clark Baron MD [address] [place] [address] [email or web address] Medical Oncology 11/24/15 John Witt MD [address] [place] [address] [email or web address] Thoracic Surgery 12/26/17 Shayy Parks MD Radiation Oncology 12/26/17 John Witt MD [address] [place], [place] [phone] [email or web address] Referring Physician Thoracic Surgery 11/09/24 documented as of this encounter Additional Source Comments The information contained in this document represents components of the legal health record. It is not the complete legal health record.[facility]
--- OUTSIDE RECORDS SUMMARY | 2025-05-21 12:43 | XMS_ITS | Encounter Summary ---
Author Organization [facility] Address [address] [place] [address] Phone Care Team Providers Care Superintendent Factory Name Role Phone Clark Baron MD Unavailable [phone] Santino Curiel MD Primary Care Provider + John Witt MD Unavailable [phone] Shayy Parks MD Unavailable Unavailable Santino Curiel MD Primary Care Provider + John Witt MD Unavailable Encounter Details Date Type Department Care Team (Late st Contact Info) Description 12/27/2017 Procedure Pass [facility] [address] [place] [address] Social History Tobacco Use Types Packs/Day Years [...] on filedocumented in this encounter Care Teams Superintendent Factory Relationship Specialty Start Date End Date Santino Curiel MD [address] [place] [address] PCP - General Internal Medicine 11/22/16 11/08/24 Santino Curiel MD [address] [place] [address] PCP - General Internal Medicine 11/09/24 Clark Baron MD [address] [place] [address] [email or web address] Medical Oncology 11/24/15 John Witt MD [address] [place] [address] [email or web address] Thoracic Surgery 12/26/17 Shayy Parks MD Radiation Oncology 12/26/17 John Witt MD [address] [place] [address] [email or web address] Referring Physician Thoracic Surgery 11/09/24 documented as of this encounter Additional Source Comments The information contained in this document represents components of the legal health record. It is not the complete legal health record.[facility]
--- OUTSIDE RECORDS SUMMARY | 2025-05-21 12:43 | XMS_ITS ---
Author Organization [facility] Address [address] [place] [address] Phone Care Team Providers Care Tobacco Stripping Machine Operator Name Role Phone Santino Curiel MD Primary Care Provider [phone] Transitional Care Management Status:Ongoing (Active) Start date:05/20/2025 Enrollment date:05/20/2025 Enrollment reason:Identified using hospital discharge data Case Team Name Relationship Phone Sherine Puente RN(Responsible Staff) Account Support Manager Continued Care and Services Coordination
--- OUTSIDE RECORDS SUMMARY | 2025-05-21 12:43 | XMS_ITS | Encounter Summary ---
Author Organization [facility] Address [address] [place] [address] Phone Care Team Providers Care Passenger Rate Clerk Name Role Phone Clark Baron MD Unavailable [phone] Santino Curiel MD Primary Care Provider + John Witt MD Unavailable [phone] Shayy Parks MD Unavailable Unavailable Santino Curiel MD Primary Care Provider + John Witt MD Unavailable [phone] Encounter Details Date Type Department Care Team (Late st Contact Info) Description 01/05/2018 Procedure Pass [facility] Periop [address] [place] [address] Social History Tobacco Use Types Packs/Day Years [...] on filedocumented in this encounter Care Teams Passenger Rate Clerk Relationship Specialty Start Date End Date Santino Curiel MD [address] [place] [address] PCP - General Internal Medicine 11/22/16 11/08/24 Santino Curiel MD [address] [place] [address] PCP - General Internal Medicine 11/09/24 Clark Baron MD [address] [place] [address] [email or web address] Medical [email or web address] 11/24/15 John Witt MD [address] [place] [address] [email or web address] Thoracic Surgery 12/26/17 Shayy Parks MD Radiation Oncology 12/26/17 John Witt MD [address] [place] [address] [email or web address] Referring Physician Thoracic Surgery 11/09/24 documented as of this encounter Additional Source Comments The information contained in this document represents components of the legal health record. It is not the complete legal health record.[facility]
--- OUTSIDE RECORDS SUMMARY | 2025-05-21 12:44 | XMS_ITS | Clinical Summary ---
Author Organization [facility] Address [address] [place] [address] Phone Care Team Providers Care Deputy Controller Name Role Phone Clark Baron MD Unavailable [phone] John Witt MD Unavailable [phone] Shayy Parks MD Unavailable Unavailable Santino Curiel MD Primary Care Provider + John Witt MD Unavailable [phone] Allergies No known active allergies Medications simvastatin [...] Description 03/06/2025 2:00 PM EDT Office Visit 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) 03/06/2025 8:34 AM EDT - 03/06/2025 11:59 PM EDT Hospital Encounter [facility], [place] [address] [address] Clark Baron MD Discharge Disposition: Home or Self Care 03/06/2025 7:35 AM EDT - 03/06/2025 8:33 AM EDT Hospital Encounter [facility], [facility] [address] [address] Clark Baron MD Discharge Disposition: Home or Self Care 01/09/2025 Procedure Pass [place] [address] [address] 01/09/2025 Procedure Pass [place] [address] [address] 01/09/2025 Procedure Pass [facility], [facility] [address] [address] from Last 3 Months Immunizations Immunization Administration Dates Next Due Influenza, Unspecified Formulation 11/18(Deferred: Patient Decision - patient/family refuses) Pneumococcal polysaccharide PPSV23 11/18(Deferred: Patient Decision - patient/family refuses) Family History Medical History Relation Comments Coronary artery disease Father possible [place] Cancer Neg Hx Relation Status Comments Father [...] have edited the report originally created by Wil Shahid. Narrative 03/06/2025 2:[address] CHEST WITH CONTRAST Referring clinician's provided indication for this examination in [facility]: * Small cell lung cancer, assess treatment [...] clinician's provided indication for this examination in [facility]: *Small cell lung cancer, assess treatment response; [...] for our patients and providers by visiting [email or web address] ATTESTATION: IKelly, as teaching physician have reviewed [...] reports for our patients and providers by [email or web address] ATTESTATION: IKelly, as teaching physician have reviewed [...] EDT) SODIUM 143 136 - 145 mmol/L [facility]# [id number] POTASSIUM 4.6 3.4 - 5.1 mmol/L [facility]# [id number] CHLORIDE 106 98 - 107 mmol/L [facility]# [id number] CO2 27 22 - 31 mmol/L [facility]# [id number] BUN 16 6 - 23 mg/dL [facility]# [id number] CREATININE 0.70 0.50 - 1.20 mg/dL [facility]# [id number] GLUCOSE 143(H) 70 - 100 mg/dL [facility]# [id number] ALBUMIN 3.5 3.5 - 5.2 g/dL [facility]# [id number] TOTAL PROTEIN 6.5 6.4 - 8.3 g/dL [facility]# [id number] CALCIUM 9.4 8.8 - 10.7 mg/dL [facility]# [id number] ALKALINE PHOSPHATASE 87 40 - 129 U/L [facility]# [id number] TOTAL BILIRUBIN 0.3 0.2 - 1.2 mg/dL [facility]# [id number] AST 21 <41 U/L [facility]# [id number] ALT 22 <42 U/L [facility]# [id number] GLOBULIN 3.0 2.3 - 4.2 g/dL [facility]# [id number] EGFR 99 >59 mL/min/1.7 3m2 [facility]# [id number] Comment:Estimated glomerular filtration rate calculated using the CKD-EPI refit equation. ANION GAP 10 7 - 17 mmol/L [facility] LIC# [id number] Blood 03/06/2025 7:33 AM EDT 03/06/2025 7:41 AM EDT us Clark Baron MD LAB BLOOD ORDERABLES Final Result [facility]# [id number] 300 [place] [address], [facility] * (ABNORMAL) CBC and differential (03/06/2025 7:33 AM EDT) WBC 6.08 4.00 - 10.00 K/uL [facility]# [id number] RBC 3.76(L) 4.50 - 6.40 M/uL [facility]# [id number] HGB 10.8(L) 13.5 - 18.0 g/dL [facility]# [id number] HCT 32.4(L) 40.0 - 54.0 % [facility]# [id number] PLT 207 150 - 450 K/uL [facility]# [id number] MCV 86.2 80.0 - 100.0 fL [facility]# [id number] MCH 28.7 27.0 - 32.0 pg [facility]# [id number] MCHC 33.3 32.0 - 36.0 g/dL [facility]# [id number] RDW 12.8 11.5 - 14.5 % [facility]# [id number] MPV 9.9 8.4 - 12.0 fL [facility]# [id number] NRBC 0.00 0.00 /100 WBCs [facility]# [id number] ABSOLUTE NRBC 0.00 0 K/uL [facility] LIC# [id number] DIFF METHOD Auto [facility] LIC# [id number] NEUTS 60.5 48.0 - 76.0 % [facility]# [id number] LYMPHS 23.5 18.0 - 41.0 % [facility]IC# [id number] MONOS 12.2(H) 4.0 - 11.0 % [facility]# [id number] EOS 2.8 0.0 - 5.0 % [facility]# [id number] BASOS 0.5 0.00 - 1.50 % [facility]# [id number] % IMMATURE GRANS 0.5 0.00 - 1.00 % [facility] LIC# [id number] ABSOLUTE NEUTS 3.68 1.92 - 7.60 K/uL [facility] LIC# [id number] ABSOLUTE LYMPHS 1.43 0.72 - 4.10 K/uL [facility] L[facility]# [id number] ABSOLUTE MONOS 0.74 0.16 - 1.10 K/uL [facility] LIC# [id number] ABSOLUTE EOS 0.17 0.00 - 0.50 K/uL [facility] LIC# [id number] ABSOLUTE BASOS 0.03 0.00 - 0.15 K/uL [facility]# [id number] ABS IMMATURE GRANS 0.03 0.00 - 0.10 K/uL [facility]IC# [id number] Blood 03/06/2025 7:33 AM EDT 03/06/2025 7:41 AM EDT us Clark Baron MD LAB BLOOD ORDERABLES Final Result [facility]# [id number] [address] * (ABNORMAL) Hemoglobin A1c (01/02/2018 3:43 PM EDT) HEMOGLOBIN A1C 8.2(H) 4.2 - 5.8 % [facility] CALC MEAN BLD GLUC 189 mg/dL [facility] Comment: There is no established [...] PhD LAB BLOOD ORDERABLES Fin al Result [facility] [address] [place] [address] from Last 3 Months or Most Recently Relevant to Health Maintenance Insurance [facility] PART A & B [facility] PART A & B [facility] PART [facility] & [place] [facility] [facility] [place] [facility] [place] B Advance Directives For more information, please contact: [phone] (9AM - 5PM [facility], Tuesday-Tuesday) Documents on File Type Date Recorded Patient Survey Engineer Expl anation Advance Directive - Non Epic LMR 06/08/2010 12:00 AM Care Teams Deputy Controller Relationship Specialty Start Date End Date Santino Curiel MD [address] [place] [address] PCP - General Internal Medicine 11/09/24 Clark Baron MD [address] [place] [address] [email or web address] 11/24/15 John Witt MD [address] [place] [address] Thoracic Surgery 12/26/17 Shayy Parks MD Radiation Oncology 12/26/17 John Witt MD [address] [place] [address] Referring Physician Thoracic Surgery 11/09/24 Additional Source Comments The information contained in this document represents components of the legal health record. It is not the complete legal health record.[facility]
--- OUTSIDE RECORDS SUMMARY | 2025-05-21 12:44 | XMS_ITS | Encounter Summary ---
Author Organization [facility] Address [address] [place] [address] Phone Care Team Providers Care Instructional Technology Coach Name Role Phone Clark Baron MD Unavailable [phone] Santino Curiel MD Primary Care Provider + John Witt MD Unavailable [phone] Shayy Parks MD Unavailable Unavailable Santino Curiel MD Primary Care Provider + John Witt MD Unavailable [phone] Encounter Details Date Type Department Care Team (Late st Contact Info) Description 11/22/2016 Procedure Pass [facility], [facility] [place] 450 [facility], Floor [address] [place] [address] Social History Tobacco Use Types Packs/Day Years [...] on filedocumented in this encounter Care Teams Instructional Technology Coach Relationship Specialty Start Date End Date Santino Curiel MD [address] [place] [address] PCP - General Internal Medicine 11/22/16 11/08/24 Santino Curiel MD [address] [place] [address] PCP - General Internal Medicine 11/09/24 Clark Baron MD [address] [place] [address] [email or web address] Medical Oncology 11/24/15 John Witt MD [address] [place] [address] Thoracic Surgery 12/26/17 Shayy Parks MD Radiation Oncology 12/26/17 John Witt MD [address] [place] [address] Referring Physician Thoracic Surgery 11/09/24 documented as of this encounter Additional Source Comments The information contained in this document represents components of the legal health record. It is not the complete legal health record.[facility]
--- OUTSIDE RECORDS SUMMARY | 2025-05-21 12:44 | XMS_ITS | Encounter Summary ---
Author Organization [facility] Address [address] [place] [address] Phone Care Team Providers Care Resident Care Director Name Role Phone Clark Baron MD Unavailable [phone] John Witt MD Unavailable [phone] Shayy Parks MD Unavailable Unavailable Santino Curiel MD Primary Care Provider + John Witt MD Unavailable [phone] Encounter Details Date Type Department Care Team (Late st Contact Info) Description 01/09/2025 Procedure Pass [facility] [place] [facility] [place] [address] [address] Social History Tobacco Use Types [...] on filedocumented in this encounter Care Teams Resident Care Director Relationship Specialty Start Date End Date Santino Curiel MD [address] [place] [address] PCP - General Internal Medicine 11/09/24 Clark Baron MD [address] [place] [address] [email or web address] Medical [email or web address] 11/24/15 John Witt MD [address] [place] [address] [email or web address] Thoracic Surgery 12/26/17 Shayy Parks MD Radiation Oncology 12/26/17 John Witt MD [address] [place], [place] [address] [email or web address] Referring Physician Thoracic Surgery 11/09/24 documented as of this encounter Additional Source Comments The information contained in this document represents components of the legal health record. It is not the complete legal health record.[facility]
--- OUTSIDE RECORDS SUMMARY | 2025-05-21 12:44 | XMS_ITS | Encounter Summary ---
Author Organization [facility] Address [address] [place] [address] Phone Care Team Providers Care Director Of Corporate Responsibility Name Role Phone Clark Baron MD Unavailable Santino Curiel MD Primary Care Provider + John Witt MD Unavailable Shayy Parks MD Unavailable Unavailable Santino Curiel MD Primary Care Provider + John Witt MD Unavailable Encounter Details Date Type Department Care Team (Late st Contact Info) Description 02/16/2022 Procedure Pass [facility], [facility] [place], [place] 450 [facility], Floor L1 [place] [address] Social History Tobacco Use Types Packs/Day Years [...] on filedocumented in this encounter Care Teams Director Of Corporate Responsibility Relationship Specialty Start Date End Date Santino Curiel MD [address] [place] [address] PCP - General Internal Medicine 11/22/16 11/08/24 Santino Curiel MD [address] [place] [address] PCP - General Internal Medicine 11/09/24 Clark Baron MD [address] [place] [address] [email or web address] 11/24/15 John Witt MD [address] [place] [address] Thoracic Surgery 12/26/17 Shayy Parks MD Radiation Oncology 12/26/17 John Witt MD [address] [place] [address] [email or web address] Referring Physician Thoracic Surgery 11/09/24 documented as of this encounter Additional Source Comments The information contained in this document represents components of the legal health record. It is not the complete legal health record.[facility]
--- OUTSIDE RECORDS SUMMARY | 2025-05-21 12:44 | XMS_ITS | Encounter Summary ---
Author Organization [facility] Address [address] [place] [address] Phone Care Team Providers Care Construction Site Manager Name Role Phone Clark Baron MD Unavailable [phone] Santino Curiel MD Primary Care Provider + John Witt MD Unavailable [phone] Shayy Parks MD Unavailable Unavailable Santino Curiel MD Primary Care Provider + John Witt MD Unavailable [phone] Encounter Details Date Type Department Care Team (Late st Contact Info) Description 01/11/2018 Procedure Pass [facility], [facility] [place] 450 [facility], Floor [address]1 [place] [address] Social History Tobacco Use Types Packs/Day Years [...] on filedocumented in this encounter Care Teams Construction Site Manager Relationship Specialty Start Date End Date Santino Curiel MD [address] [place] [address] PCP - General Internal Medicine 11/22/16 11/08/24 Santino Curiel MD [address] [place] [address] PCP - General Internal Medicine 11/09/24 Clark Baron MD [address] [place] [address] [email or web address] 11/24/15 John Witt MD [address] [place] [address] Thoracic Surgery 12/26/17 Shayy Parks MD Radiation Oncology 12/26/17 John Witt MD [address] [place] [address] [email or web address] Referring Physician Thoracic Surgery 11/09/24 documented as of this encounter Additional Source Comments The information contained in this document represents components of the legal health record. It is not the complete legal health record.[facility]
--- OUTSIDE RECORDS SUMMARY | 2025-05-21 12:44 | XMS_ITS ---
Author Organization [facility] Address [address] [place] [address] Phone Care Team Providers Care Crowd Controller Name Role Phone Santino Curiel MD Primary Care Provider [phone] Chronic Care Management Status:Ongoing (Active) Start date:04/09/2025 Enrollment date:04/16/2025 Enrollment reason:Referred by Care Team Related social drivers of health:Housing Instability, Food Access & Nutrition, Access to Healthcare, Health Literacy, Financial Risk, Transportation, Social Isolation, Food Risk, Dependent Care, Education, Employment and Income, [place] [facility] Literacy, Living Situation Case Team Name Relationship Phone Sherine Puente RN(Responsible Staff) Clinical Exercise Specialist Continued Care and Services Coordination
--- OUTSIDE RECORDS SUMMARY | 2025-05-21 12:44 | XMS_ITS | Encounter Summary ---
Author Organization [facility] Address [address] [place] [address] Care Team Providers Care Buhr Dresser Name Role Phone Santino Curiel MD Primary Care Provider [phone] Reason for Referral * Consultation (Routine) - Authorized Specialty Diagnoses / Procedures Referred By Nathalia t Referred To Contact Endocrinology Diagnoses Type 2 diabetes mellitus with neurological manifestations, controlled (CMS/HCC V24, CMS/HCC V28) Nolan Santos NP [address] [place] [address] Phone: tel: fax: Endocrinology [address] Phone: tel: fax: Referral ID Status Reason Start Date Expiration Date Visits Requested Visits Authorized [id number] Authorized Specialty Services Required 04/16/2025 04/16/2026 1 1 Reason for Visit * Reason Onset Date Comments Follow-up 04/16/2025 ancillary services manager therapy inf orming the patient's blood sugars still running high Encounter Details Date Type Department Care Team ([facility] Contact Info) Description 04/16/2025 Telephone Internal Medicine - [address] [address] Kellen Thompson RN Social History Tobacco Use [...] your loved ones. For example, child care nurse or elderly care for an older adult? [...] AM EDT Office Visit Internal Medicine - [address] [address] Santino Curiel MD [address] [place] [address] 05/24/2025 1:00 PM EDT Medication Management Adult Medicine - [place] [address] [place] [address] Yakelin Pack, PharmD [address] [place] [address] 06/17/2025 1:15 PM EDT Office Visit Internal Medicine - [address] [address] Santino Curiel MD [address] [place] [address] Scheduled Referrals Name Type Priority Associated Diagnoses Order Schedule Ambulatory referral to Endocrinology Outpatient Referral Routine Type 2 diabetes mellitus with neurological manifestations, controlled (CMS[facility] V24, CMS/[facility] V28) 1 Occurrences starting 04/16/2025 until 04/16/2026 documented as of this encounter Visit Diagnoses Diagnosis Type 2 diabetes mellitus with neurological manifestations, controlled (CMS/HCC V24, CMS/HCC V28)- Primary Type II or unspecified type diabetes mellitus with neurological manifestations, not stated as uncontrolled documented in this encounter Care Teams Buhr Dresser Relationship Specialty Start Date End Date Santino Curiel MD [address] [place] [address] PCP - General Internal Medicine 10/04/24 documented as of this encounter
--- OUTSIDE RECORDS SUMMARY | 2025-05-21 12:44 | XMS_ITS | Encounter Summary ---
Author Organization [facility] Address [address] [place] [id number] Phone Care Team Providers Care Economic Developer Name Role Phone Clark Baron MD Unavailable [phone] Santino Curiel MD Primary Care Provider + John Witt MD Unavailable [phone] Shayy Parks MD Unavailable Unavailable Santino Curiel MD Primary Care Provider + John Witt MD Unavailable [phone] Encounter Details Date Type Department Care Team (Late st Contact Info) Description 02/16/2022 Procedure Pass [facility] Imaging Department, [facility] [place], [place] [address] [facility], [address] [place] [address] Social History Tobacco Use Types Packs/Day Years [...] on filedocumented in this encounter Care Teams Economic Developer Relationship Specialty Start Date End Date Santino Curiel MD [address] [place] [phone] PCP - General Internal Medicine 11/22/16 11/08/24 Santino Curiel MD [address] [place] [phone] PCP - General Internal Medicine 11/09/24 Clark Baron MD [address] [place] [phone] [email or web address] 11/24/15 John Witt MD [address] [place] [phone] Thoracic Surgery 12/26/17 Shayy Parks MD Radiation Oncology 12/26/17 John Witt MD [address] [place] [phone] [email or web address] Referring Physician Thoracic Surgery 11/09/24 documented as of this encounter Additional Source Comments The information contained in this document represents components of the legal health record. It is not the complete legal health record.[facility]
--- OUTSIDE RECORDS SUMMARY | 2025-05-21 12:44 | XMS_ITS | Encounter Summary ---
Author Organization [facility] Address [address] [place] [address] Care Team Providers Care Director Automotive Name Role Phone Santino Curiel MD Primary Care Provider [phone] Reason for Visit * Reason Onset Date Comments Discharge Follow-up 05/20/2025 Discharge BM C 05/18 Encounter Details Date Type Department Care Team (Late st Contact Info) Description 05/20/2025 Telephone Internal Medicine - [facility] [address] [place] [phone] Kellen Thompson, AMARI Social History Tobacco Use Types Packs/Day Years [...] care for your loved ones. For example, early childhood special educator or elderly care for an older adult? [...] as of this encounter Progress Notes * Sera Adames MA - 05/21/2025 11:02 AM EDT Spoke with pt's daughter, appt booked 05/23 at 10am. * Santino Curiel MD - 05/21/2025 10:42 AM EDT Pre op * Sera Adames MA - 05/21/2025 9:32 AM EDT Spoke with pt's daughter, states she needs pt to see Dr Curiel this week, pt dx with cancer. Can Iuse pre-op or AWV? Please advise. * Sera Adames MA - 05/20/2025 11:41 AM EDT Msg left for pt to return my call. When the pt call back, please transfer to [phone] [phone] or resend to the message pool. Appt booked 05/28/25 Need to confirm appt * Kellen Thompson RN - 05/20/2025 10:54 AM EDT Needs TCM Admission date: 05/17/25 Discharge date: 05/18/25 Patient discharged from: [facility] with discharge diagnosis ofDischarge Diagnosis-copy and pasted from [facility] discharge summary Hematuria Acute Complicated UTI with hematuria Failure of outpatient treatment (Z78.9) Anemia (D64.9) Type 2 diabetes mellitus (E11.9) HLD (hyperlipidemia) (E78.5) HTN (hypertension) (I10) documented in this encounter Plan of Treatment Upcoming Encounters Date Type Department Care Team (Late st Contact Info) Description 05/23/2025 10:00 AM EDT Office Visit Internal Medicine - [address] [phone] Santino Curiel MD [address] [place] [phone] 05/24/2025 1:00 PM EDT Medication Management Adult Medicine - [address] [place] [phone] Yakelin Pack, PharmD [address] [place] [phone] 06/17/2025 1:15 PM EDT Office Visit Internal Medicine - [address] [phone] Santino Curiel MD [address] [place] [phone] documented as of this encounter Visit Diagnoses Not on filedocumented in this encounter Care Teams Director Automotive Relationship Specialty Start Date End Date Santino Curiel MD [address] [place] [phone] PCP - General Internal Medicine 10/04/24 documented as of this encounter
--- NOTE | 2025-05-21 12:59 | EMG_ITS ---
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 EMG of the left L4-S1 innervated muscles consistent with chronic distal neuropathic changes. Please see detailed neurophysiological report MTDD
== END 2025-05-21 11:17 | disposition home or self-care (01) ==
LOC: HO.NEURO 11:16
PROVIDERS: PCP Internal Medicine; Visit Provider Psychiatry & Neurology Neurology
DX: M79.18 Myalgia, other site (principal); E11.9 Type 2 diabetes mellitus without complications; M25.562 Pain in left knee; M25.561 Pain in right knee; G62.9 Polyneuropathy, unspecified
CPT/HCPCS: 95885; 95911

== ENCOUNTER → 2025-05-21 12:59 | Outpatient (BNV) | payer MEDICARE, MEDICAID, SELFPAY | PROVIDERS: PCP Internal Medicine; Visit Provider Psychiatry & Neurology Neurology | DX: G62.9 Polyneuropathy, unspecified (principal) | CPT/HCPCS: 95886; 95911 ==